=== PATIENT | female | born 1980 | race Two or more races ===

== ENCOUNTER 2016-10-17 17:11 | Emergency (ER) | payer SELFPAY ==
[~2016-10-17] VITALS: Ht 162.6 cm; Wt 106.1 kg
[2016-10-17] MEDS ORDERED: cloNIDine HCL 0.1 MG TABLET PO ONE (19:00)
[2016-10-17] MEDS ORDERED: ACETAMINOPHEN 500 MG TABLET PO ONE (19:00)
[2016-10-17] MEDS ORDERED: IBUPROFEN 800 MG TABLET. PO ONE (19:00)
[2016-10-17] MEDS ORDERED: NORMAL SALINE IV SCH (19:00)
[2016-10-17 19:13] LABS: BASO # 0.1 x10^3/uL (0.0-0.2); BASO % 1 % (0-3); EOS % 2 % (0-3); HEMATOCRIT 39.7 % (36.0-47.0); HEMOGLOBIN 13.6 g/dL (12.0-15.5); LYMPH # 1.5 x10^3/uL (1.0-4.8); LYMPH % 13 % (24-48); MEAN CORPUSCULAR HEMOGLOBIN 30 pg (25-35); MEAN CORPUSCULAR HGB CONC 34 g/dL (31-37); MEAN CORPUSCULAR VOLUME 87 fL (79-100); MONO % 9 % (0-9); NEUT % 76 % (31-73); PLATELET COUNT 286 x10^3/uL (140-400); RED BLOOD COUNT 4.56 x10^6/uL (3.50-5.40); RED CELL DISTRIBUTION WIDTH 13.6 % (11.5-14.5)
[2016-10-17 19:27] LABS: BILIRUBIN,URINE NEGATIVE (NEG); GLUCOSE,URINE NEGATIVE (NEG); NITRITE,URINE NEGATIVE (NEG); PROTEIN,URINE NEGATIVE (NEG-TRACE); UROBILINOGEN,URINE 0.2 mg/dL (0.2 mg/dL)
[2016-10-17 19:34] LABS: BACTERIA,URINE 0 /HPF (0-FEW); SQUAMOUS EPITHELIAL CELL,UR MOD /LPF
[2016-10-17 20:14] LABS: CALCIUM 8.7 mg/dL (8.5-10.1); CREATININE 0.7 mg/dL (0.6-1.0); GFR 93.6; POTASSIUM 3.7 mmol/L (3.5-5.1)
[2016-10-17 20:20] LABS: ALBUMIN 3.9 g/dL (3.4-5.0); TOTAL BILIRUBIN 0.5 mg/dL (0.2-1.0); TOTAL PROTEIN 7.9 g/dL (6.4-8.2)
[2016-10-17 21:06] VITALS: BP 133/79
[2016-10-17] MEDS ORDERED: PROAIR RESPICL90 MCG IH (21:19)
[2016-10-17] MEDS ORDERED: BENZ100C PO (21:19)
[2016-10-17] MEDS ORDERED: PRED50TA PO (21:19)
[2016-10-17] MEDS ORDERED: AMOX875T PO (21:19)
--- NOTE | 2016-10-17 21:19 | PHYS DOC ---
Past Medical History Past Medical History: Hypertension Past Surgical History: No Surgical History Alcohol Use: None Drug Use: None Adult General Chief Complaint Chief Complaint: FEVER HPI HPI Patient is a 36 year old female with hx of HTN, who presents intermittent headaches, for one month, fevers, sore throat, cough and bilateral ear pain for one month. Patient denies this being the worst headache in her life. Denies any neck pain. Patient denies this being the worst headache in her life. Denies any nausea or vomiting. Denies any photosensitivity. Review of Systems Review of Systems Constitutional: Subjective fevers Eyes: Denies change in visual acuity, redness, or eye pain [] HENT: Bilateral ear pain and sore throat [] Respiratory: Denies cough or shortness of breath [] Cardiovascular: No additional information not addressed in HPI [] GI: Denies abdominal pain, nausea, vomiting, bloody stools or diarrhea [] : Denies dysuria or hematuria [] Musculoskeletal: Denies back pain or joint pain [] Integument: Denies rash or skin lesions [] Neurologic: headache Endocrine: Denies polyuria or polydipsia [] Current Medications Current Medications Current Medications Medications (Trade) Dose Ordered Sig/Silke Start Time Stop Time Status Last Admin Dose Admin Acetaminophen (Tylenol) 1,000 mg 1X ONCE 10/17/16 19:00 10/17/16 19:01 DC 10/17/16 19:05 1,000 MG Clonidine HCl (Catapres) 0.2 mg 1X ONCE 10/17/16 19:00 10/17/16 19:01 DC 10/17/16 19:06 0.2 MG Dobutamine HCl/ Dextrose 250 ml @ 0 mls/hr CONT PRN 10/17/16 18:45 10/17/16 21:35 DC Ibuprofen (Motrin) 800 mg 1X ONCE 10/17/16 19:00 10/17/16 19:01 DC 10/17/16 19:05 800 MG Norepinephrine Bitartrate 250 ml @ 0 mls/hr CONT PRN 10/17/16 18:45 10/17/16 21:35 DC Sodium Chloride 500 ml @ 1,000 mls/hr PRN Q30MIN PRN 10/17/16 18:45 10/17/16 21:35 DC Allergies Allergies Allergies Coded Allergies Type Severity Reaction Last Updated Verified No Known Drug Allergies 10/17/16 No Physical Exam Physical Exam Constitutional: Well developed, well nourished, no acute distress, non-toxic appearance. [] HENT: Normocephalic, atraumatic, bilateral external ears normal, oropharynx moist, no oral exudates, nose normal. [] Bilateral TM are mildly injected. +2 tonsils with mild erythema +2 anterior cervical adenopathy Eyes: PERRLA, EOMI, conjunctiva normal, no discharge. [] Neck: Normal range of motion, no tenderness, supple, no stridor. [] Cardiovascular:Heart rate regular rhythm, no murmur [] Lungs & Thorax: Bilateral breath sounds clear to auscultation [] Abdomen: Bowel sounds normal, soft, no tenderness, no masses, no pulsatile masses. [] Skin: Warm, dry, no erythema, no rash. [] Back: No tenderness, no CVA tenderness. [] Extremities: No tenderness, no cyanosis, no clubbing, ROM intact, no edema. [] Neurologic: Alert and oriented X 3, normal motor function, normal sensory function, no focal deficits noted. Cranial nerves II through XII intact Psychologic: Affect normal, judgement normal, mood normal. [] Current Patient Data Vital Signs Vital Signs Date Time Temp Pulse Resp B/P (MAP) Pulse Ox O2 Delivery O2 Flow Rate FiO2 10/17/16 21:06 88 20 133/79 (97) 95 Room Air 10/17/16 20:07 99.3 99.3 Lab Values Laboratory Tests Test 10/17/16 18:26 10/17/16 18:55 10/17/16 19:15 POC Urine HCG, Qualitative Hcg negative (Negative) White Blood Count 12.0 x10^3/uL (4.0-11.0) H Red Blood Count 4.56 x10^6/uL (3.50-5.40) Hemoglobin 13.6 g/dL (12.0-15.5) Hematocrit 39.7 % (36.0-47.0) Mean Corpuscular Volume 87 fL (79-100) Mean Corpuscular Hemoglobin 30 pg (25-35) Mean Corpuscular Hemoglobin Concent 34 g/dL (31-37) Red Cell Distribution Width 13.6 % (11.5-14.5) Platelet Count 286 x10^3/uL (140-400) Neutrophils (%) (Auto) 76 % (31-73) H Lymphocytes (%) (Auto) 13 % (24-48) L Monocytes (%) (Auto) 9 % (0-9) Eosinophils (%) (Auto) 2 % (0-3) Basophils (%) (Auto) 1 % (0-3) Neutrophils # (Auto) 9.1 x10^3uL (1.8-7.7) H Lymphocytes # (Auto) 1.5 x10^3/uL (1.0-4.8) Monocytes # (Auto) 1.1 x10^3/uL (0.0-1.1) Eosinophils # (Auto) 0.3 x10^3/uL (0.0-0.7) Basophils # (Auto) 0.1 x10^3/uL (0.0-0.2) Sodium Level 139 mmol/L (136-145) Potassium Level 3.7 mmol/L (3.5-5.1) Chloride Level 102 mmol/L (98-107) Carbon Dioxide Level 27 mmol/L (21-32) Anion Gap 10 (6-14) Blood Urea Nitrogen 9 mg/dL (7-20) Creatinine 0.7 mg/dL (0.6-1.0) Estimated GFR (Cockcroft-Gault) 93.6 BUN/Creatinine Ratio 13 (6-20) Glucose Level 113 mg/dL (70-99) H Lactic Acid Level 1.5 mmol/L (0.4-2.0) Calcium Level 8.7 mg/dL (8.5-10.1) Total Bilirubin 0.5 mg/dL (0.2-1.0) Aspartate Amino Transferase (AST) 49 U/L (15-37) H Alanine Aminotransferase (ALT) 63 U/L (14-59) H Alkaline Phosphatase 105 U/L (46-116) Total Protein 7.9 g/dL (6.4-8.2) Albumin 3.9 g/dL (3.4-5.0) Albumin/Globulin Ratio 1.0 (1.0-1.7) Procalcitonin < 0.10 ng/mL (0.00-0.10) Urine Collection Type Unknown Urine Color Yellow Urine Clarity Clear Urine pH 8.0 Urine Specific [place] 1.020 Urine Protein Negative mg/dL (NEG-TRACE) Urine Glucose (UA) Negative mg/dL (NEG) Urine Ketones (Stick) Negative mg/dL (NEG) Urine Blood Negative (NEG) Urine Nitrite Negative (NEG) Urine Bilirubin Negative (NEG) Urine Urobilinogen Dipstick 0.2 mg/dL (0.2 mg/dL) Urine Leukocyte Esterase Negative (NEG) Urine RBC 3-5 /HPF (0-2) Urine WBC 1-4 /HPF (0-4) Urine Squamous Epithelial Cells Mod /LPF Urine Bacteria 0 /HPF (0-FEW) Urine Mucus Mod /LPF Laboratory Tests 10/17/16 18:55 Laboratory Tests 10/17/16 18:55 EKG EKG [] Radiology/Procedures Radiology/Procedures [] Course & Med Decision Making Course & Med Decision Making Pertinent Labs and Imaging studies reviewed. (See chart for details) This is a 36-year-old female patient who presents to the ED with multiple complaints including generalized headache, fevers, coughing, ear pain and sore throat for 1 month. She has history of hypertension and has not taken her blood pressure medicines weeks. Blood pressure is 197/106, heart rate 118, temperature 100.0, respiration 24, O2 sats 98%. Physical exam patient has tonsillitis, otitis media and bronchitis. Chest x-ray interpreted by Dr. Muhammad is negative for any acute findings. CBC with a WBC of 12.0. CMP with a slightly elevated AST and ALT 49 and 63 respectively. Patient was given IV fluids in the ED. She was given Tylenol. She was also given clonidine for her blood pressure. On evaluation prior to discharge patient states she is feeling better. She was discharged with albuterol inhaler, prednisone, amoxicillin, Tessalon Perles, and instructed to follow-up with her own PCP next week especially for her blood pressure. Tylenol or Motrin recommended for pain or fever. Dragon Disclaimer Dragon Disclaimer This electronic medical record was generated, in whole or in part, using a voice recognition dictation system. Departure Departure Impression: Primary Impression: Acute tonsillitis Additional Impressions: Fever Otitis media Accelerated hypertension Disposition: 01 HOME, SELF-CARE Condition: STABLE Referrals: NO PCP (PCP) FOLLOW UP WITH YOUR DOCTOR IN ONE WEEK Patient Instructions: Acute Bronchitis, Fever, Adult, Otitis Media, Adult Additional Instructions: You were seen for fever, otitis media and bronchitis. Please use the medications provided as ordered. Scripts Benzonatate (TESSALON PERLE) 100 Mg Capsule 1 CAP PO TID, #30 CAP Prov: HERO SRIVASTAVA APRN 10/17/16 Albuterol Sulfate (Proair Respiclick) 90 Mcg Aer.pow.ba 1 PUFF IH PRN Q6HRS Y for SHORTNESS OF BREATH, #1 INHALER Prov: HERO SRIVASTAVA APRN 10/17/16 Prednisone (PREDNISONE) 50 Mg Tablet 1 TAB PO DAILY, #5 TAB Prov: HERO SRIVASTAVA APRN 10/17/16 Amoxicillin (AMOXICILLIN) 875 Mg Tablet 1 TAB PO BID, #20 TAB Prov: HERO SRIVASTAVA APRN 10/17/16 Problem Qualifiers Primary Impression: Acute tonsillitis Pharyngitis/tonsillitis etiology: unspecified etiology Qualified Codes: J03.90 - Acute tonsillitis, unspecified Additional Impressions: Fever Fever type: unspecified Qualified Codes: R50.9 - Fever, unspecified Otitis media Otitis media type: other nonsuppurative Laterality: bilateral Chronicity: acute Recurrence: not specified as recurrent Qualified Codes: H65.193 - Other acute nonsuppurative otitis media, bilateral HERO SRIVASTAVA APRN Oct 17, 2016 21:19
[2016-10-17] MEDS: IV NORMAL SALINE 500ML BAG 500 ML IV PRN ×2 (21:33→21:34)
[2016-10-17] MEDS: NOREPINEPHRIN PREMIX 250 ML IV PRN ×2 (21:33→21:34)
--- NOTE | 2016-10-18 08:21 | RAD ---
Indication cough for several days. Upper chest pressure. Cough. PA and lateral views of the chest were obtained. No prior imaging is available. The heart and pulmonary vessels appear normal. The lungs are clear. There is no pleural fluid or pneumothorax. The bony structures appear unremarkable. IMPRESSION: No acute or focal process seen in the chest
== END 2016-10-17 21:35 | disposition home or self-care (01) ==
LOC: ER 17:11
DX: J03.90 Acute tonsillitis, unspecified (principal); H66.93 Otitis media, unspecified, bilateral; I10 Essential (primary) hypertension; R51 Headache
CPT/HCPCS: 36415; 71020; 80053; 81001; 81025; 83605; 84145; 85027; 87040; 96360; 96361; 99285; J0390; J7030

== ENCOUNTER 2016-10-25 11:47 | Emergency (ER) | payer SELFPAY ==
[~2016-10-25 11:47] MED LIST: AMOX875T PO; BENZ100C PO; PRED50TA PO; PROAIR RESPICL90 MCG IH
--- NOTE | 2016-10-25 12:18 | EKG ---
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 RI6.01 Unconfirmed report No previous ECG available for comparison Electronically Signed On 10-28-2016 10:43:27 CDT by Anthony Danielle
[2016-10-25] MEDS ORDERED: AZIT250T6 PO (12:38)
--- NOTE | 2016-10-25 12:38 | PHYS DOC ---
Past Medical History Past Medical History: Hypertension Past Surgical History: No Surgical History Alcohol Use: None Drug Use: None Adult General Chief Complaint Chief Complaint: COUGH HPI HPI 36-year-old female presenting to the emergency department today with cough and chest pain. She describes the cough is nonproductive. The pain is worse with coughing it is sharp intermittent nonradiating and mild. Without alleviating factors. She was seen previously and diagnosed with bronchitis. She was given steroids and breathing treatment along with amoxicillin to go home with. She reports her symptoms have not improved much. The patient denies unilateral leg swelling hemoptysis family or personal history of blood clotting disorders. She denies recent immobilization or surgery. Patient's chest pain is been present for more than 2 days. She has a history of hypertension. She denies hyperlipidemia diabetes. She denies ever smoking. Review of systems is negative for fevers chills abdominal pain nausea vomiting diaphoresis. All other review of systems is negative unless otherwise noted in history of present illness. Pertinent physical exam findings: The patient has minimal wheezing in the left and right lungs. Otherwise heart has mildly tachy rate (105 when I was in the room) and rhythm. Otherwise soft nontender abdomen. Well-appearing individual. ED course: 36-year-old female presenting to the emergency department today with cough and chest pain. EKG and chest x-ray were obtained. Blood work obtained. The patient's triage vital signs were recorded when the patient was coughing and do not represent the patient's resting vital signs. During my examination the patient was breathing 18 times per minute. The pulse was approximately 105. Blood pressure was 160/85. Heart score 1. Potassium mildly low. Oral potassium prescription given upon discharge to follow up with PCP for potassium recheck in 2 days. The patient was then discharged home in stable condition to follow up with their primary care physician over the next 2 days. They were to return if their symptoms worsened or if they were concerned for any reason. Face-to- face discharge instructions and return precautions were given. Patient's questions were answered. Review of Systems Review of Systems SEE ABOVE. Allergies Allergies Allergies Coded Allergies Type Severity Reaction Last Updated Verified No Known Drug Allergies 10/17/16 No Physical Exam Physical Exam Constitutional: Well developed, well nourished, no acute distress, non-toxic appearance. [] HENT: Normocephalic, atraumatic, bilateral external ears normal, oropharynx moist, no oral exudates, nose normal. [] Eyes: PERRLA, EOMI, conjunctiva normal, no discharge. [] Neck: Normal range of motion, no tenderness, supple, no stridor. [] Cardiovascular: see above Lungs & Thorax: see above Abdomen: Bowel sounds normal, soft, no tenderness, no masses, no pulsatile masses. [] Skin: Warm, dry, no erythema, no rash. [] Back: No tenderness, no CVA tenderness. [] Extremities: No tenderness, no cyanosis, no clubbing, ROM intact, no edema. [] Neurologic: Alert and oriented X 3, normal motor function, normal sensory function, no focal deficits noted. [] Psychologic: Affect normal, judgement normal, mood normal. [] Current Patient Data Vital Signs Vital Signs Date Time Temp Pulse Resp B/P (MAP) Pulse Ox O2 Delivery O2 Flow Rate FiO2 10/25/16 12:01 98.3 125 24 165/74 (104) 99 Room Air 98.3 Lab Values Laboratory Tests Test 10/25/16 12:45 White Blood Count 12.9 x10^3/uL (4.0-11.0) H Red Blood Count 4.44 x10^6/uL (3.50-5.40) Hemoglobin 13.1 g/dL (12.0-15.5) Hematocrit 39.2 % (36.0-47.0) Mean Corpuscular Volume 88 fL (79-100) Mean Corpuscular Hemoglobin 30 pg (25-35) Mean Corpuscular Hemoglobin Concent 33 g/dL (31-37) Red Cell Distribution Width 13.4 % (11.5-14.5) Platelet Count 300 x10^3/uL (140-400) Neutrophils (%) (Auto) 65 % (31-73) Lymphocytes (%) (Auto) 24 % (24-48) Monocytes (%) (Auto) 8 % (0-9) Eosinophils (%) (Auto) 3 % (0-3) Basophils (%) (Auto) 1 % (0-3) Neutrophils # (Auto) 8.3 x10^3uL (1.8-7.7) H Lymphocytes # (Auto) 3.1 x10^3/uL (1.0-4.8) Monocytes # (Auto) 1.0 x10^3/uL (0.0-1.1) Eosinophils # (Auto) 0.4 x10^3/uL (0.0-0.7) Basophils # (Auto) 0.1 x10^3/uL (0.0-0.2) Sodium Level 141 mmol/L (136-145) Potassium Level 3.2 mmol/L (3.5-5.1) L Chloride Level 104 mmol/L (98-107) Carbon Dioxide Level 26 mmol/L (21-32) Anion Gap 11 (6-14) Blood Urea Nitrogen 10 mg/dL (7-20) Creatinine 0.7 mg/dL (0.6-1.0) Estimated GFR (Cockcroft-Gault) 93.6 Glucose Level 170 mg/dL (70-99) H Calcium Level 8.8 mg/dL (8.5-10.1) Troponin I Quantitative < 0.017 ng/mL (0.000-0.055) Laboratory Tests 10/25/16 12:45 Laboratory Tests 10/25/16 12:45 EKG EKG EKG shows sinus tachycardia. ST segments congruent. Not suggestive of ACS. [] Radiology/Procedures Radiology/Procedures [] Course & Med Decision Making Course & Med Decision Making Pertinent Labs and Imaging studies reviewed. (See chart for details) [] Dragon Disclaimer Dragon Disclaimer This electronic medical record was generated, in whole or in part, using a voice recognition dictation system. Departure Departure Impression: Primary Impression: Cough Additional Impression: Sinus tachycardia Disposition: HOME, SELF-CARE Condition: STABLE Referrals: NO PCP (PCP) TOMY HARDIN MD Patient Instructions: Cough, Adult Additional Instructions: Thank you for allowing us to participate in your care today. Followup with your primary care physician in 3 days if your symptoms do not improve. If you do not have a primary care provider you can ask for a list of our primary care providers. Return to the emergency department you have any new or concerning findings. This should be evaluated by the primary care physician and any necessary consulting services for continued management within a few days after discharge. Return to emergency room if you have any new or concerning symptoms including but not limited to fever, chills, nausea, vomiting, intractable pain, any new rashes, chest pain, shortness of air, uncontrolled bleeding, difficulty breathing, and/or vision loss. Scripts Potassium Chloride (POTASSIUM CHLORIDE) 10 Meq Capsule.er 10 MEQ PO DAILY for 5 Days, #5 TAB.SR Prov: BOLIVAR BOYD MD 10/25/16 Azithromycin (AZITHROMYCIN TABLET) 250 Mg Tablet 1 PKG PO UD, #6 TAB Prov: BOLIVAR BOYD MD 10/25/16 Problem Qualifiers BOLIVAR BOYD MD Oct 25, 2016 12:38
[2016-10-25 12:55] LABS: BASO # 0.1 x10^3/uL (0.0-0.2); BASO % 1 % (0-3); EOS % 3 % (0-3); HEMATOCRIT 39.2 % (36.0-47.0); HEMOGLOBIN 13.1 g/dL (12.0-15.5); LYMPH # 3.1 x10^3/uL (1.0-4.8); LYMPH % 24 % (24-48); MEAN CORPUSCULAR HEMOGLOBIN 30 pg (25-35); MEAN CORPUSCULAR HGB CONC 33 g/dL (31-37); MEAN CORPUSCULAR VOLUME 88 fL (79-100); MONO % 8 % (0-9); NEUT % 65 % (31-73); PLATELET COUNT 300 x10^3/uL (140-400); RED BLOOD COUNT 4.44 x10^6/uL (3.50-5.40); RED CELL DISTRIBUTION WIDTH 13.4 % (11.5-14.5); WHITE BLOOD COUNT 12.9 x10^3/uL (4.0-11.0)
[2016-10-25 13:06] LABS: CALCIUM 8.8 mg/dL (8.5-10.1); CREATININE 0.7 mg/dL (0.6-1.0); GFR 93.6; POTASSIUM 3.2 mmol/L (3.5-5.1)
--- NOTE | 2016-10-25 13:06 | RAD ---
PA and lateral chest radiographs 10/24/2016 Clinical history: Chest pain, for some time with arm swelling. PA and lateral digital radiographs of the chest were obtained. Comparison study is dated 10/17/2016. The cardiac silhouette is normal in size. The thoracic aorta is mildly tortuous. No acute pulmonary infiltrate is seen. No pleural effusion or pneumothorax is noted. The osseous structures are unchanged. Impression: No acute abnormality is seen.
[2016-10-25] MEDS ORDERED: POTASSIUM CHLO10 MEQ PO (14:21)
[2016-10-25 14:25] VITALS: BP 171/79
[2016-10-25] MEDS ORDERED: IPRATRPIUM/ALBUTEROL 0.5/2.5MG 3 ML NEBU. NEB ONE (14:30)
[2016-10-25] MEDS ORDERED: POTASSIUM CHLORIDE 10 MEQ TABLET.ER. PO ONE (14:30)
== END 2016-10-25 15:23 | disposition home or self-care (01) ==
LOC: ER 11:47
DX: R00.0 Tachycardia, unspecified (principal); R05 Cough; I10 Essential (primary) hypertension
CPT/HCPCS: 36415; 71020; 80048; 81025; 84484; 85027; 93005; 94250; 94640; 99285; J7620

== ENCOUNTER 2019-07-03 10:25 | Emergency (ER) | payer SELFPAY ==
[~2019-07-03] VITALS: Ht 162.6 cm; Wt 81.0 kg
[~2019-07-03 10:25] MED LIST changes: +AZIT250T6 PO; +POTA10TA12 PO
[2019-07-03] MEDS ORDERED: ONDANSETRON ODT 4 MG TAB.RAPDIS. PO ONE (11:00)
[2019-07-03] MEDS ORDERED: IBUPROFEN 400 MG TABLET. PO ONE (11:00)
[2019-07-03] MEDS ORDERED: ACETAMINOPHEN 500 MG TABLET PO ONE (11:00)
[2019-07-03 11:34] LABS: INFLUENZA A PATIENT POSITIVE (NEGATIVE); INFLUENZA B PATIENT NEGATIVE (NEGATIVE)
[2019-07-03 11:36] VITALS: BP 174/99
--- NOTE | 2019-07-03 11:42 | RAD ---
EXAM: Chest, single view. HISTORY: Fever. COMPARISON: 10/25/2016 FINDINGS: A frontal view of the chest obtained. There is no infiltrate, pleural effusion or pneumothorax. The heart is normal in size. IMPRESSION: No acute pulmonary finding. Electronically signed by: Apple Reyes MD (07/03/2019 11:40 AM) [id number]
--- NOTE | 2019-07-03 12:20 | PHYS DOC ---
Past Medical History Past Medical History: Hypertension Past Surgical History: No Surgical History Smoking Status: Never Smoker Alcohol Use: None Drug Use: None Adult General Chief Complaint Chief Complaint: FLU SYMPTOM HPI HPI Patient is a 38 year old female who presents with sore throat, cough, fever, body aches, symptoms began 4 days ago. Patient denies any exposure to anyone from [place] or traveling outside the [facility]. Review of Systems Review of Systems Constitutional: reports fever, body aches. Eyes: Denies change in visual acuity, redness, or eye pain [] HENT: Reports sore throat. Denies nasal congestion Respiratory: Reports cough denies shortness of breath [] Cardiovascular: No additional information not addressed in HPI [] GI: Denies abdominal pain, nausea, vomiting, bloody stools or diarrhea [] : Denies dysuria or hematuria [] Musculoskeletal: Denies back pain or joint pain [] Integument: Denies rash or skin lesions [] Neurologic: Denies headache, focal weakness or sensory changes [] All other systems were reviewed and found to be within normal limits, except as documented in this note. Current Medications Current Medications Current Medications Medications (Trade) Dose Ordered Sig/[facility] Start Time Stop Time Status Last Admin Dose Admin Acetaminophen (Tylenol) 1,000 mg 1X ONCE 07/03/19 11:00 07/03/19 11:01 DC 07/03/19 11:13 1,000 MG Ibuprofen (Motrin) 800 mg 1X ONCE 07/03/19 11:00 07/03/19 11:01 DC 07/03/19 11:13 800 MG Ondansetron HCl (Zofran Odt) 4 mg 1X ONCE 07/03/19 11:00 07/03/19 11:01 DC 07/03/19 11:12 4 MG Allergies Allergies Allergies Coded Allergies Type Severity Reaction Last Updated Verified No Known Drug Allergies 10/17/16 No Physical Exam Physical Exam Constitutional: Well developed, well nourished, no acute distress, non-toxic appearance. [] HENT: Normocephalic, atraumatic, bilateral external ears normal, oropharynx moist, no oral exudates, nose normal. [] Eyes: PERRLA, EOMI, conjunctiva normal, no discharge. [] Neck: Normal range of motion, no tenderness, supple, no stridor. [] Cardiovascular:Heart rate regular rhythm, no murmur [] Lungs & Thorax: Bilateral breath sounds clear to auscultation [] Abdomen: Bowel sounds normal, soft, no tenderness, no masses, no pulsatile masses. [] Skin: Warm, dry, no erythema, no rash. [] Back: No tenderness, no CVA tenderness. [] Extremities: No tenderness, no cyanosis, no clubbing, ROM intact, no edema. [] Neurologic: Alert and oriented X 3, normal motor function, normal sensory function, no focal deficits noted. [] Psychologic: Affect normal, judgement normal, mood normal. [] Current Patient Data Vital Signs Vital Signs Date Time Temp Pulse Resp B/P (MAP) Pulse Ox O2 Delivery O2 Flow Rate FiO2 07/03/19 11:36 108 16 174/99 (124) 95 Room Air 07/03/19 10:25 102.8 102.8 Lab Values Laboratory Tests Test 07/03/19 10:38 07/03/19 10:45 POC Urine HCG, Qualitative Hcg negative (Negative) Influenza Type A Antigen Positive (NEGATIVE) Influenza Type B Antigen Negative (NEGATIVE) EKG EKG [] Radiology/Procedures Radiology/Procedures []PROCEDURE: CHEST AP ONLY EXAM: Chest, single view. HISTORY: Fever. COMPARISON: 10/25/2016 FINDINGS: A frontal view of the chest obtained. There is no infiltrate, pleural effusion or pneumothorax. The heart is normal in size. IMPRESSION: No acute pulmonary finding. Electronically signed by: Apple Reyes MD (07/03/2019 11:40 AM) [id number] DICTATED and SIGNED BY: APPLE REYES MD DATE: 07/03/19 1140 Course & Med Decision Making Course & Med Decision Making Pertinent Labs and Imaging studies reviewed. (See chart for details) This is a 38-year-old female patient presenting to the ED today with flulike symptoms including body aches, fevers, cough, sore throat, symptoms began 4 days ago. Positive for influenza A. Patient was discharged with prednisone, given Zofran for nausea vomiting, supportive care measures also recommended including resting, Tylenol/Motrin and pushing fluids. Dragon Disclaimer Dragon Disclaimer This electronic medical record was generated, in whole or in part, using a voice recognition dictation system. Departure Departure Impression: Primary Impression: Influenza A Additional Impressions: Fever Cough Disposition: HOME, SELF-CARE Condition: STABLE Referrals: NO PCP (PCP) follow up with your doctor in 1-2 weeks Patient Instructions: Cough, Adult, [id number], Fever, Adult, Influenza A (H1N1) Additional Instructions: You tested positive for influenza A, this is a viral illness, it run its own course. Please rest, push fluids, maintain good hand hygiene. Take the prescribed medications as ordered. Follow-up with your doctor in 1-2 weeks. Ensure you taking Tylenol/Motrin for pain or fever Scripts Ondansetron (ONDANSETRON ODT) 4 Mg Tab.rapdis 1 TAB PO PRN Q6-8HRS, #16 TAB Prov: HERO SRIVASTAVA APRN 07/03/19 Benzonatate (TESSALON PERLE) 100 Mg Capsule 1 CAP PO TID, #30 CAP Prov: HERO SRIVASTAVA APRN 07/03/19 Prednisone (PREDNISONE) 50 Mg Tablet 1 TAB PO DAILY, #5 TAB Prov: HERO SRIVASTAVA APRN 07/03/19 Problem Qualifiers Additional Impressions: Fever Fever type: unspecified Qualified Codes: R50.9 - Fever, unspecified HERO SRIVASTAVA APRN Jul 03, 2019 12:20
[2019-07-03] MEDS ORDERED: PRED50TA PO (12:27)
[2019-07-03] MEDS ORDERED: BENZ100C PO (12:27)
[2019-07-03] MEDS ORDERED: ONDA4TAB12 PO (12:29)
[2019-07-03] MEDS ORDERED: IV NORMAL SALINE 1000ML BAG 1,000 ML IV ONE (12:30)
== END 2019-07-03 12:45 | disposition home or self-care (01) ==
LOC: ER 10:25
DX: J10.1 Influenza due to other identified influenza virus with other respiratory manifestations (principal); R05 Cough; R52 Pain, unspecified; I10 Essential (primary) hypertension
CPT/HCPCS: 71045; 81025; 87070; 87804; 87880; 99284; J7030; Q0162

== ENCOUNTER 2019-07-12 21:47 | Emergency (ER) | payer SELFPAY ==
[~2019-07-12] VITALS: Ht 162.6 cm; Wt 86.4 kg
[~2019-07-12 21:47] MED LIST changes: +ONDA4TAB12 PO
--- NOTE | 2019-07-13 00:16 | RAD ---
CHEST PA LATERAL History: Cough Comparison: July 03, 2019 Findings: No consolidation or pleural effusion. Normal heart size. No pneumothorax. Impression: 1. No acute cardiopulmonary process. Electronically signed by: Shahram Guadalupe DO (07/13/2019 12:13 AM) [id number]
[2019-07-13] MEDS ORDERED: IPRATRPIUM/ALBUTEROL 0.5/2.5MG 3 ML NEBU. NEB ONE (00:30)
[2019-07-13] MEDS ORDERED: IV NORMAL SALINE 1000ML BAG 1,000 ML IV SCH (00:30)
[2019-07-13] MEDS ORDERED: KETOROLAC 30 MG/ML VIAL. ONE (00:39)
[2019-07-13 00:44] LABS: BASO # 0.1 x10^3/uL (0.0-0.2); BASO % 1 % (0-3); EOS # 0.2 x10^3/uL (0.0-0.7); EOS % 2 % (0-3); HEMATOCRIT 38.3 % (36.0-47.0); LYMPH # 3.1 x10^3/uL (1.0-4.8); LYMPH % 32 % (24-48); MEAN CORPUSCULAR HEMOGLOBIN 29 pg (25-35); MEAN CORPUSCULAR HGB CONC 34 g/dL (31-37); MEAN CORPUSCULAR VOLUME 85 fL (79-100); MONO # 0.7 x10^3/uL (0.0-1.1); MONO % 7 % (0-9); NEUT # 5.6 x10^3/uL (1.8-7.7); NEUT % 58 % (31-73); PLATELET COUNT 382 x10^3/uL (140-400); RED BLOOD COUNT 4.49 x10^6/uL (3.50-5.40); RED CELL DISTRIBUTION WIDTH 14.2 % (11.5-14.5); WHITE BLOOD COUNT 9.6 x10^3/uL (4.0-11.0)
[2019-07-13 00:45] LABS: BILIRUBIN,URINE NEGATIVE (NEG); CLARITY,URINE CLEAR; COLOR,URINE YELLOW; NITRITE,URINE NEGATIVE (NEG); PROTEIN,URINE NEGATIVE (NEG-TRACE)
[2019-07-13 00:52] LABS: BACTERIA,URINE 0 /HPF (0-FEW); RBC,URINE RARE /HPF (0-2); SQUAMOUS EPITHELIAL CELL,UR FEW /LPF; WBC,URINE 0 /HPF (0-4)
[2019-07-13 00:56] LABS: CALCIUM 8.7 mg/dL (8.5-10.1); CREATININE 0.5 mg/dL (0.6-1.0); GFR 136.6; POTASSIUM 5.1 mmol/L (3.5-5.1)
[2019-07-13] MEDS ORDERED: KETOROLAC 30 MG/ML VIAL. IVP ONE (01:00)
[2019-07-13 01:02] LABS: ALBUMIN 3.3 g/dL (3.4-5.0); ALBUMIN/GLOBULIN RATIO 0.9 (1.0-1.7); TOTAL BILIRUBIN 0.4 mg/dL (0.2-1.0); TOTAL PROTEIN 7.1 g/dL (6.4-8.2)
[2019-07-13 01:04] LABS: INFLUENZA A PATIENT NEGATIVE (NEGATIVE); INFLUENZA B PATIENT NEGATIVE (NEGATIVE)
--- NOTE | 2019-07-13 01:08 | PHYS DOC ---
Past Medical History Past Medical History: Hypertension Past Surgical History: Tubal ligation Smoking Status: Never Smoker Alcohol Use: None Drug Use: None Adult General Chief Complaint Chief Complaint: COUGH HPI HPI Patient is a 38 year old female who presents with report of cough, chest congestion with subjective fever and chills. Patient had been seen here on 03 July and was diagnosed with influenza. Patient states that she was not given any medication at that time and she states that she feels like she is getting worse. She states that she is able to bring up some sputum with the coughing periodically.[] Review of Systems Review of Systems Constitutional: Positive subjective fever and chills [] Eyes: Denies change in visual acuity, redness, or eye pain [] HENT: Positive nasal congestion and sore throat [] Respiratory: Positive cough without shortness of breath [] Cardiovascular: No additional information not addressed in HPI [] GI: Denies abdominal pain, nausea, vomiting or diarrhea [] Integument: Denies rash or skin lesions [] Current Medications Current Medications Current Medications Medications (Trade) Dose Ordered Sig/Silke Start Time Stop Time Status Last Admin Dose Admin Albuterol/ Ipratropium (Duoneb) 3 ml 1X ONCE 07/13/19 00:30 07/13/19 00:31 DC 07/13/19 00:10 3 ML Ketorolac Tromethamine (Toradol 30mg Vial) 30 mg 1X ONCE 07/13/19 01:00 07/13/19 01:01 DC 07/13/19 00:48 30 MG Sodium Chloride 1,000 ml @ 1,000 mls/hr Q1H 07/13/19 00:30 07/13/19 01:29 07/13/19 00:38 1,000 MLS/HR Allergies Allergies Allergies Coded Allergies Type Severity Reaction Last Updated Verified No Known Drug Allergies 10/17/16 No Physical Exam Physical Exam Constitutional: Well developed, well nourished, no acute distress, non-toxic appearance. [] HENT: Normocephalic, atraumatic, bilateral external ears normal, oropharynx moist, no oral exudates, nose normal. [] Eyes: PERRLA, EOMI, conjunctiva normal, no discharge. [] Neck: Normal range of motion, no tenderness, supple. [] Cardiovascular: Regular rate and rhythm[] Lungs & Thorax: Bilateral breath sounds clear to auscultation [] Skin: Warm, dry, no erythema, no rash. [] Extremities: No tenderness, no cyanosis, no clubbing, ROM intact, no edema. [] Current Patient Data Vital Signs Vital Signs Date Time Temp Pulse Resp B/P (MAP) Pulse Ox O2 Delivery O2 Flow Rate FiO2 07/13/19 00:10 98 Room Air 07/12/19 22:30 98.0 87 22 151/101 (118) 98.0 Lab Values Laboratory Tests Test 07/13/19 00:20 White Blood Count 9.6 x10^3/uL (4.0-11.0) Red Blood Count 4.49 x10^6/uL (3.50-5.40) Hemoglobin 13.0 g/dL (12.0-15.5) Hematocrit 38.3 % (36.0-47.0) Mean Corpuscular Volume 85 fL (79-100) Mean Corpuscular Hemoglobin 29 pg (25-35) Mean Corpuscular Hemoglobin Concent 34 g/dL (31-37) Red Cell Distribution Width 14.2 % (11.5-14.5) Platelet Count 382 x10^3/uL (140-400) Neutrophils (%) (Auto) 58 % (31-73) Lymphocytes (%) (Auto) 32 % (24-48) Monocytes (%) (Auto) 7 % (0-9) Eosinophils (%) (Auto) 2 % (0-3) Basophils (%) (Auto) 1 % (0-3) Neutrophils # (Auto) 5.6 x10^3/uL (1.8-7.7) Lymphocytes # (Auto) 3.1 x10^3/uL (1.0-4.8) Monocytes # (Auto) 0.7 x10^3/uL (0.0-1.1) Eosinophils # (Auto) 0.2 x10^3/uL (0.0-0.7) Basophils # (Auto) 0.1 x10^3/uL (0.0-0.2) Urine Collection Type Unknown Urine Color Yellow Urine Clarity Clear Urine pH 6.0 Urine Specific [place] 1.025 Urine Protein Negative mg/dL (NEG-TRACE) Urine Glucose (UA) Negative mg/dL (NEG) Urine Ketones (Stick) Negative mg/dL (NEG) Urine Blood Negative (NEG) Urine Nitrite Negative (NEG) Urine Bilirubin Negative (NEG) Urine Urobilinogen Dipstick 1.0 mg/dL (0.2 mg/dL) Urine Leukocyte Esterase Negative (NEG) Urine RBC Rare /HPF (0-2) Urine WBC 0 /HPF (0-4) Urine Squamous Epithelial Cells Few /LPF Urine Bacteria 0 /HPF (0-FEW) Urine Mucus Slight /LPF Sodium Level 140 mmol/L (136-145) Potassium Level 5.1 mmol/L (3.5-5.1) Chloride Level 104 mmol/L (98-107) Carbon Dioxide Level 26 mmol/L (21-32) Anion Gap 10 (6-14) Blood Urea Nitrogen 13 mg/dL (7-20) Creatinine 0.5 mg/dL (0.6-1.0) L Estimated GFR (Cockcroft-Gault) 136.6 BUN/Creatinine Ratio 26 (6-20) H Glucose Level 135 mg/dL (70-99) H Calcium Level 8.7 mg/dL (8.5-10.1) Total Bilirubin 0.4 mg/dL (0.2-1.0) Aspartate Amino Transferase (AST) 69 U/L (15-37) H Alanine Aminotransferase (ALT) 56 U/L (14-59) Alkaline Phosphatase 111 U/L (46-116) Troponin I Quantitative < 0.017 ng/mL (0.000-0.055) LI-Sft-Z-Type Natriuretic Peptide 45 pg/mL (0-124) Total Protein 7.1 g/dL (6.4-8.2) Albumin 3.3 g/dL (3.4-5.0) L Albumin/Globulin Ratio 0.9 (1.0-1.7) L Influenza Type A Antigen Negative (NEGATIVE) Influenza Type B Antigen Negative (NEGATIVE) Laboratory Tests 07/13/19 00:20 Laboratory Tests 07/13/19 00:20 EKG EKG [] Radiology/Procedures Radiology/Procedures [] Impressions: PROCEDURE: CHEST PA & LATERAL CHEST PA LATERAL History: Cough Comparison: July 03, 2019 Findings: No consolidation or pleural effusion. Normal heart size. No pneumothorax. Impression: 1. No acute cardiopulmonary process. Electronically signed by: Shahram Guadalupe DO (07/13/2019 12:13 AM) [id number] Course & Med Decision Making Course & Med Decision Making Pertinent Labs and Imaging studies reviewed. (See chart for details) [] Dragon Disclaimer Dragon Disclaimer This electronic medical record was generated, in whole or in part, using a voice recognition dictation system. Departure Departure Impression: Primary Impression: Acute bronchitis Disposition: 01 HOME, SELF-CARE Condition: STABLE Referrals: NO PCP (PCP) Patient Instructions: Acute Bronchitis Scripts Guaifenesin/Codeine Phosphate (Codeine-Guaifen 10-100 mg/5 ml) 120 Ml Liquid 5 ML PO PRN Q6HRS PRN for cough and congestion MDD 20 Milliliter(s) for 6 Days, #120 ML 0 Refills Prov: JANIE MAURO Jr. DO 07/13/19 Azithromycin (ZITHROMAX) 250 Mg Tablet 1 PKG PO UD, #6 TAB Prov: JANIE MAURO Jr. DO 07/13/19 Problem Qualifiers Primary Impression: Acute bronchitis Bronchitis organism: unspecified organism Qualified Codes: J20.9 - Acute bronchitis, unspecified JANIE MAURO Jr. DO Jul 13, 2019 01:08
[2019-07-13] MEDS ORDERED: AZIT250T PO (01:30)
[2019-07-13] MEDS ORDERED: GUAI120L35 PO (01:30)
[2019-07-13 01:38] VITALS: BP 164/80
[2019-07-13] MEDS ORDERED: cefTRIAXone IV Push 1 GM VIAL. IVP ONE (02:00)
== END 2019-07-13 02:10 | disposition home or self-care (01) ==
LOC: ER 21:47
DX: J20.9 Acute bronchitis, unspecified (principal); R05 Cough; R09.89 Other specified symptoms and signs involving the circulatory and respiratory systems; R50.9 Fever, unspecified; I10 Essential (primary) hypertension; Z98.51 Tubal ligation status
CPT/HCPCS: 36415; 71046; 80053; 81001; 83880; 84484; 85025; 87040; 87804; 94640; 96374; 96375; 99285; J0696; J1885; J7030

== ENCOUNTER 2020-03-29 19:11 | Emergency (ER) | payer OTHER ==
[~2020-03-29] VITALS: Ht 162.6 cm; Wt 90.9 kg
[~2020-03-29 19:11] MED LIST changes: +AZIT250T PO; +GUAI120L35 PO
[2020-03-29] MEDS ORDERED: IV NORMAL SALINE 1000ML BAG 1,000 ML IV ONE (20:15)
[2020-03-29 20:32] LABS: BASO # 0.1 x10^3/uL (0.0-0.2); BASO % 1 % (0-3); EOS # 0.2 x10^3/uL (0.0-0.7); EOS % 2 % (0-3); HEMATOCRIT 42.7 % (36.0-47.0); HEMOGLOBIN 14.7 g/dL (12.0-15.5); LYMPH # 2.8 x10^3/uL (1.0-4.8); LYMPH % 30 % (24-48); MEAN CORPUSCULAR HEMOGLOBIN 30 pg (25-35); MEAN CORPUSCULAR HGB CONC 34 g/dL (31-37); MEAN CORPUSCULAR VOLUME 86 fL (79-100); MONO # 0.6 x10^3/uL (0.0-1.1); MONO % 6 % (0-9); NEUT # 5.6 x10^3/uL (1.8-7.7); NEUT % 60 % (31-73); PLATELET COUNT 261 x10^3/uL (140-400); RED BLOOD COUNT 4.96 x10^6/uL (3.50-5.40); RED CELL DISTRIBUTION WIDTH 13.3 % (11.5-14.5); WHITE BLOOD COUNT 9.4 x10^3/uL (4.0-11.0)
--- NOTE | 2020-03-29 20:32 | ED.ADGEN ---
Past Medical History Past Medical History: Diabetes-Type II, Hypertension Past Surgical History: Tubal ligation Smoking Status: Never Smoker Alcohol Use: None Drug Use: None General Adult EDM: Chief Complaint: MULTIPLE COMPLAINTS HPI: HPI: Patient is a 39 year old female who presents to the emergency department with complaints of frequent sneezing, dry cough, and nasal congestion for the last week, she complains of pressure in her sinuses. Patient denies any fever, nausea, vomiting, diarrhea, chest pain, shortness of breath, wheezing, palpitations, abdominal pain, or body aches. She denies any known exposure to COVID-19. She reports that she has had multiple abscesses to her inner right thigh for several days, she had a similar episode 3 months ago and was prescribed antibiotics to get it cleared up. She denies any drainage, or bleeding from the abscess sites. She reports that the sites are very tender to touch and warm. Patient also expresses concerns of possible diabetes. Her daughter has been checking her blood sugar in the morning and they have been in the 300s recently. Patient denies any previous diagnosis of diabetes. She states she has been trying to get in with a new doctor at [facility] because her doctor left. She currently complains of pain in her left thigh that she rates a 10 out of 10 on the pain scale, she denies any alleviating factors, the pain is worse with palpation. Review of Systems: Review of Systems: Complete ROS is negative unless otherwise noted in HPI. Current Medications: Current Medications Medications (Trade) Dose Ordered Sig/Silke Start Time Stop Time Status Last Admin Dose Admin Acetaminophen/ Hydrocodone Bitart (Lortab 5/325) 1 tab 1X ONCE 03/29/20 22:30 03/29/20 22:31 Lidocaine/ Epinephrine (LIDOCAINE 1%-EPI 1:100,000 Multi-Dose) 20 ml 1X ONCE 03/29/20 22:00 03/29/20 22:01 DC 03/29/20 21:37 20 ML Sodium Chloride 1,000 ml @ 1,000 mls/hr 1X ONCE 03/29/20 20:15 03/29/20 21:14 DC 03/29/20 21:03 1,000 MLS/HR Allergies: Allergies: Allergies Coded Allergies Type Severity Reaction Last Updated Verified No Known Drug Allergies 10/17/16 No Physical Exam: PE: See Above Constitutional: Well developed, well nourished, no acute distress, non-toxic appearance, obese. [] HENT: Normocephalic, atraumatic, bilateral external ears normal, nose congested Eyes: PERRLA, EOMI, conjunctiva normal, no discharge. [] Neck: Normal range of motion, no stridor. [] Cardiovascular:Heart rate regular rhythm Lungs & Thorax: Respirations even and unlabored, no retractions, no respiratory distress, speaking full sentences, no wheezing Abdomen: soft, no tenderness Skin: Warm, dry; pustular folliculitis noted to the right groin with 4 areas of fluctuance with surrounding indurated, tender tissue Extremities: No cyanosis, ROM intact, no edema. [] Neurologic: Alert and oriented X 3, no focal deficits noted. [] Psychologic: Affect normal, judgement normal, mood normal. [] Current Patient Data: Labs: Laboratory Tests Test 03/29/20 19:58 White Blood Count 9.4 x10^3/uL (4.0-11.0) Red Blood Count 4.96 x10^6/uL (3.50-5.40) Hemoglobin 14.7 g/dL (12.0-15.5) Hematocrit 42.7 % (36.0-47.0) Mean Corpuscular Volume 86 fL (79-100) Mean Corpuscular Hemoglobin 30 pg (25-35) Mean Corpuscular Hemoglobin Concent 34 g/dL (31-37) Red Cell Distribution Width 13.3 % (11.5-14.5) Platelet Count 261 x10^3/uL (140-400) Neutrophils (%) (Auto) 60 % (31-73) Lymphocytes (%) (Auto) 30 % (24-48) Monocytes (%) (Auto) 6 % (0-9) Eosinophils (%) (Auto) 2 % (0-3) Basophils (%) (Auto) 1 % (0-3) Neutrophils # (Auto) 5.6 x10^3/uL (1.8-7.7) Lymphocytes # (Auto) 2.8 x10^3/uL (1.0-4.8) Monocytes # (Auto) 0.6 x10^3/uL (0.0-1.1) Eosinophils # (Auto) 0.2 x10^3/uL (0.0-0.7) Basophils # (Auto) 0.1 x10^3/uL (0.0-0.2) Urine Collection Type Void Urine Color Yellow Urine Clarity Clear Urine pH 6.0 (<5.0-8.0) Urine Specific [place] >=1.030 (1.000-1.030) Urine Protein Negative mg/dL (NEG-TRACE) Urine Glucose (UA) >=1000 mg/dL (NEG) Urine Ketones (Stick) Trace mg/dL (NEG) Urine Blood Moderate (NEG) Urine Nitrite Negative (NEG) Urine Bilirubin Negative (NEG) Urine Urobilinogen Dipstick 1.0 mg/dL (0.2 mg/dL) Urine Leukocyte Esterase Negative (NEG) Urine RBC 1-2 /HPF (0-2) Urine WBC 0 /HPF (0-4) Urine Squamous Epithelial Cells Few /LPF Urine Bacteria 0 /HPF (0-FEW) Sodium Level 128 mmol/L (136-145) L Potassium Level 3.4 mmol/L (3.5-5.1) L Chloride Level 96 mmol/L (98-107) L Carbon Dioxide Level 28 mmol/L (21-32) Anion Gap 4 (6-14) L Blood Urea Nitrogen 11 mg/dL (7-20) Creatinine 0.8 mg/dL (0.6-1.0) Estimated GFR (Cockcroft-Gault) 79.0 BUN/Creatinine Ratio 14 (6-20) Glucose Level 363 mg/dL (70-99) H Glucose (Fingerstick) 349 mg/dL (70-99) H Calcium Level 9.1 mg/dL (8.5-10.1) Total Bilirubin 0.4 mg/dL (0.2-1.0) Aspartate Amino Transferase (AST) 45 U/L (15-37) H Alanine Aminotransferase (ALT) 63 U/L (14-59) H Alkaline Phosphatase 139 U/L (46-116) H Total Protein 7.7 g/dL (6.4-8.2) Albumin 3.7 g/dL (3.4-5.0) Albumin/Globulin Ratio 0.9 (1.0-1.7) L Laboratory Tests 03/29/20 19:58 Laboratory Tests 03/29/20 19:58 Vital Signs: Vital Signs Date Time Temp Pulse Resp B/P (MAP) Pulse Ox O2 Delivery O2 Flow Rate FiO2 03/29/20 20:53 86 20 142/78 (99) 97 Room Air 03/29/20 19:48 98.0 98.0 EKG: EKG: [] Heart Score: Risk Factors: Risk Factors: DM, Current or recent (<one month) smoker, HTN, HLP, family history of CAD, obesity. Risk Scores: Score 0 - 3: 2.5% MACE over next 6 weeks - Discharge Home Score 4 - 6: 20.3% MACE over next 6 weeks - Admit for Clinical Observation Score 7 - 10: 72.7% MACE over next 6 weeks - Early Invasive Strategies Radiology/Procedures: Radiology/Procedures: Indication: follicular abscesses of right groin Procedure: The patient was positioned appropriately. Local anesthesia was 1% lid ocaine with epinephrine an incision was then made with an 11 blade scalpel over the apex of the lesions and small amount of bloody pus was expressed from each of the 4 sites. The patient tolerated the procedure well. Complications: none.[] Course & Med Decision Making: Course & Med Decision Making Pertinent Labs and Imaging studies reviewed. (See chart for details) 39-year-old female presented to the emergency room with multiple complaints. Low suspicion for COVID-19 as the patient's chest x-ray was normal, and her only symptoms were a dry cough and nasal congestion. Patient denied any decreased sense of taste or smell. CBC was unremarkable; CMP revealed a corrected sodium of 132; potassium of 3.4, chloride of 96, glucose of 363, AST of 45, ALT of 63, alk phos 139 otherwise unremarkable; patient's urinalysis revealed greater than thousand glucose trace ketones 1-2 red blood cells otherwise unremarkable. The patient was given 1 L of normal saline in the emergency department. I&D of the abscesses as documented above. Patient was given 1 hydrocodone for pain. She was also provided with diet instructions for diabetic meal planning. I provided her with local resources for follow-up. She was instructed to return to the ER if fever develops or symptoms worsened. Patient verbalized an understanding of home care, medications, follow-up, and return to ED instructions and was in agreement with the plan of care. [] Dragon Disclaimer: Dragon Disclaimer: This electronic medical record was generated, in whole or in part, using a voice recognition dictation system. Departure Departure Impression: Primary Impression: Allergic rhinitis Additional Impressions: Hyperglycemia Acute folliculitis Disposition: 01 DC HOME SELF CARE/HOMELESS Condition: STABLE Referrals: NO PCP (PCP) Patient Instructions: Allergic Rhinitis, Diabetes Meal Planning Guide, Folliculitis, Hyperglycemia, [id number] Additional Instructions: Fill the prescription(s) and use as directed. Recommend that you take 10 mg of generic Zyrtec (cetirizine) or Claritin at bedtime and use over the counter F lonase (fluticasone) nasal spray 2 sprays each nostril once daily in the morning. You may take Tylenol or ibuprofen as needed for pain/fever. Increase clear fluids. Avoid triggers such as smoke, fragrance, dust, and pollen. You may take OTC cough suppressants as needed. Follow the diabetic diet information provided, you need to follow up with a primary care doctor about your elevated blood sugar. Apply warm, moist packs to the area of folliculitis to help decrease discomfort. Follow up with your primary care doctor or return to the ER in 48 hours to have wounds rechecked. Return to the ER sooner if your symptoms worsen or fever develops. [facility] [address] [place] [address] [facility] [address] [place] [address] [facility] [address] [facility] [place] [address] [facility] [address] [place] [address] [facility] [address] [place] [address] [facility] [address] [place] [address] [facility] [address] [place] [address] [facility] [address] [place] [address] [facility] [address] [place] [address] [facility] [address] [place] [address] . Scripts Clindamycin Hcl (CLINDAMYCIN HCL) 150 Mg Capsule 450 MG PO TID for 7 Days, #63 CAP 0 Refills Prov: TREE FOSTER APRN 03/29/20 Problem Qualifiers Primary Impression: Allergic rhinitis Allergic rhinitis trigger: unspecified Allergic rhinitis seasonality: unspecified Qualified Codes: J30.9 - Allergic rhinitis, unspecified TREE FOSTER SOLUTION SPECIALIST Mar 29, 2020 20:32
[2020-03-29 20:39] LABS: BILIRUBIN,URINE NEGATIVE (NEG); CALCIUM 9.1 mg/dL (8.5-10.1); CLARITY,URINE CLEAR; COLOR,URINE YELLOW; CREATININE 0.8 mg/dL (0.6-1.0); NITRITE,URINE NEGATIVE (NEG); POTASSIUM 3.4 mmol/L (3.5-5.1); PROTEIN,URINE NEGATIVE (NEG-TRACE)
[2020-03-29 20:45] LABS: ALBUMIN 3.7 g/dL (3.4-5.0); ALBUMIN/GLOBULIN RATIO 0.9 (1.0-1.7); TOTAL BILIRUBIN 0.4 mg/dL (0.2-1.0); TOTAL PROTEIN 7.7 g/dL (6.4-8.2)
[2020-03-29 20:48] LABS: BACTERIA,URINE 0 /HPF (0-FEW); WBC,URINE 0 /HPF (0-4)
--- NOTE | 2020-03-29 21:09 | RAD ---
Exam: Chest one view INDICATION: Cough TECHNIQUE: Frontal view of the chest Comparisons: 07/12/2019 FINDINGS: The cardiomediastinal silhouette and pulmonary vessels are within normal limits. The lung and pleural spaces are clear. IMPRESSION: No acute cardiopulmonary process. Electronically signed by: Iris Gutierres MD (03/29/2020 9:06 PM) TORY
[2020-03-29] MEDS ORDERED: LIDOCAINE 1%/EPI 1:100,000 20 ML VIAL. SQ ONE (22:00)
[2020-03-29] MEDS ORDERED: CLIN150C14 PO (22:13)
[2020-03-29] MEDS ORDERED: HYDROcodone/APAP 5/325MG 1 TAB TABLET PO ONE (22:30)
[2020-03-29 22:53] VITALS: BP 148/74
== END 2020-03-29 23:00 | disposition home or self-care (01) ==
LOC: ER 19:11
DX: L02.415 Cutaneous abscess of right lower limb (principal); J30.9 Allergic rhinitis, unspecified; R05 Cough; R09.81 Nasal congestion; L73.9 Follicular disorder, unspecified; E11.65 Type 2 diabetes mellitus with hyperglycemia; I10 Essential (primary) hypertension; Z98.51 Tubal ligation status
CPT/HCPCS: 10061; 36415; 71045; 80053; 81001; 82962; 85025; 96360; 96361; 99285; J3490; J7030

== ENCOUNTER 2020-11-28 13:36 | Emergency (ER) | payer OTHER ==
[~2020-11-28] VITALS: Ht 165.1 cm; Wt 75.0 kg
[~2020-11-28 13:36] MED LIST changes: +CLIN150C15 PO
[2020-11-28] MEDS ORDERED: ACETAMINOPHEN 325 MG TABLET. PO ONE (19:30)
[2020-11-28] MEDS ORDERED: BENZ100C PO (19:47)
--- NOTE | 2020-11-28 19:48 | PHYS DOC ---
Past Medical History Past Medical History: Diabetes-Type II, Hypertension Past Surgical History: Tubal ligation Smoking Status: Never Smoker Alcohol Use: None Drug Use: None General Adult EDM: Chief Complaint: FLU SYMPTOM HPI: HPI: Patient is a 40 year old female with a past medical history hypertension diab etes presents with a chief complaint of cough fever headache generalized weakness. Patient states symptoms have been ongoing for the last 8 days. Patient states she has a cough without sputum production. Patient states she has been taking ibuprofen for symptomatic relief. Patient is not vaccinated against Covid. She states her started to have a fever last night and her child started to have runny nose 2 or 3 days ago. On exam patient is not hypoxic oxygen saturations 97-98% on room air. Patient mildly tachycardic with a heart rate of 102 on the monitor when I examined the patient. Patient is a febrile. Patient's Covid test resulted positive. She was treated with Decadron IM. Patient discharged home with [place]. Review of Systems: Review of Systems: Review of systems: Constitutional symptoms- Positive fever, Positive chills. Eyes- No Discharge, No Visual Loss Respiratory symptoms- Positive shortness of breath, No wheezing, No Dyspnea on Exertion Positive cough Cardiovascular Systems; No chest pain, No Palpitations, No syncope Gastrointestinal symptoms: NO abdominal pain, no nausea, no vomiting or diarrhea. Genitourinary symptoms: No dysuria. Musculoskeletal symptoms: No back pain No extremity pain. Positive positive myalgias NEUROLOGICAL Symptoms: Positive headache, no generalized weakness; No focal Weakness Skin: No rash. Heart Score: C/O Chest Pain: N/A Risk Factors: Risk Factors: DM, Current or recent (<one month) smoker, HTN, HLP, family history of CAD, obesity. Risk Scores: Score 0 - 3: 2.5% MACE over next 6 weeks - Discharge Home Score 4 - 6: 20.3% MACE over next 6 weeks - Admit for Clinical Observation Score 7 - 10: 72.7% MACE over next 6 weeks - Early Invasive Strategies Current Medications: Current Medications Medications (Trade) Dose Ordered Sig/Silke Start Time Stop Time Status Last Admin Dose Admin Acetaminophen (Tylenol) 650 mg 1X ONCE 11/28/20 19:30 11/28/20 19:31 DC Allergies: Allergies: Allergies Coded Allergies Type Severity Reaction Last Updated Verified No Known Drug Allergies 10/17/16 No Physical Exam: PE: Constitutional: Well developed, well nourished, no acute distress, non-toxic appearance. [] HENT: Normocephalic, atraumatic, bilateral external ears normal, oropharynx moist, no oral exudates, nose normal. [] Eyes: PERRLA, EOMI, conjunctiva normal, no discharge. [] Neck: Normal range of motion, no tenderness, supple, no stridor. [] Cardiovascular:Heart rate regular rhythm, no murmur [] Lungs & Thorax: Bilateral breath sounds clear to auscultation [] Abdomen: Bowel sounds normal, soft, no tenderness, no masses, no pulsatile masses. [] Skin: Warm, dry, no erythema, no rash. [] Back: No tenderness, no CVA tenderness. [] Extremities: No tenderness, no cyanosis, no clubbing, ROM intact, no edema. [] Neurologic: Alert and oriented X 3, normal motor function, normal sensory function, no focal deficits noted. [] Psychologic: Affect normal, judgement normal, mood normal. [] Current Patient Data: Labs: Laboratory Tests Test 11/28/20 19:03 SARS-CoV-2 Antigen (Rapid) Positive (NEGATIVE) *A EKG: EKG: [] Performed at 1816 Rate [address] elevation No ST depression No acute MD Radiology/Procedures: Radiology/Procedures: [] Course & Med Decision Making: Course & Med Decision Making Pertinent Labs and Imaging studies reviewed. (See chart for details) [] Dragon Disclaimer: Dragon Disclaimer: This electronic medical record was generated, in whole or in part, using a voice recognition dictation system. Departure Departure Impression: Primary Impression: COVID-19 Disposition: HOME / SELF CARE / HOMELESS Condition: STABLE Referrals: NO PCP (PCP) Patient Instructions: Upper Respiratory Infection, Adult, Viral Infections Additional Instructions: Definicin Se le realiz la prueba de deteccin del COVID-19 o se le diagnostic dicha enfermedad. Es ponce infeccin ocasionada por un nuevo tipo de coronavirus. En la mayora de los casos, el COVID-19 provoca sntomas similares a los del resfriado. En algunas personas, puede ocasionar sntomas ms graves, cheryl problemas respiratorios. No existe un tratamiento para el virus COVID-19. El cuerpo elimina la infeccin con el tiempo. El cuidado personal ayuda a aliviar el malestar. Pasos que debe seguir 1. Cuidados personales Descanse cuando sea necesario. Los hbitos saludables pueden ayudarlo a sentirse mejor. Algunas medidas para lograr cambios incluyen lo siguiente: - Elija alimentos saludables, cheryl frutas y verduras. Ashley abundante cantidad de agua ronal todo el da. - Duerma pallavi por la noche. - Si fuma, intente no hacerlo. Thorp ayudar a mejorar la respiracin. - Evite el alcohol. 2. Mantenga sanos a los dems El virus puede contagiarse a otras personas. Cada vez que estornuda o tose, se liberan gotitas. Las gotitas pueden entrar en la boca, la nariz o los ojos de las personas que se encuentran cerca de usted y ocasionar la infeccin. Para reducir las probabilidades de contagiar el virus COVID-19 a otros, tenga en cuenta lo siguiente: - Qudese en casa el tiempo que el mdico se lo indique. Es posible que deba quedarse en casa hasta que la enfermedad desaparezca. Salga nicamente para recibir atencin mdica o en linda de urgencia. - Evite las reas pblicas, los eventos o el transporte pblico. No reanude las actividades laborales o escolares hasta que el mdico lo autorice. - Llame previamente si necesita asistir a un centro mdico. Avise que es posible que haya contrado COVID-19. Thorp ayudar a que le indiquen adonde debe dirigirse. Tambin pueden pedirle que use ponce mscara facial cuando vaya al consultorio. Si llama a los servicios de asistencia mdica de urgencias, avseles que es posible que haya contrado COVID-19. Mientras est en casa: - Evite el contacto directo con otras personas. Mantngase a ponce distancia aproximada de 2 metros. Si es posible, pasen la mayor parte del tiempo en harding separadas. - Use ponce mscara facial si estar en contacto directo con otras personas, por ejemplo, si compartir ponce habitacin o un vehculo. - Pida a alguien que limpie las superficies comunes de la casa. Limpie picaportes, mesadas y lavamanos con limpiadores domsticos todos los morgan. - Al toser o estornudar, cbrase con un pauelo de papel. Despus de usarlo, deschelo de inmediato. Si no tiene un pauelo de papel, tosa o estornude en el pliegue del codo. - Lvese las rita con frecuencia. Lvese las rita despus de estornudar o toser. Lvese con agua y jabn ronal, al menos, 20 segundos. Si no dispone de agua y jabn, use un limpiador de rita a base de alcohol. - No cocine para otros. Evite compartir objetos personales, cheryl tenedores, cucharas o cepillos de dientes. - Mientras est enfermo, evite el contacto directo con las mascotas. No hay indicios de si el virus se transmite a las mascotas. Esta es ponce medida de seguridad que debe tenerse en cuenta hasta que se sepa ms acerca de ursula virus. El aislamiento puede ser frustrante. La interaccin social puede ayudar. Mantngase en contacto con amigos y familiares por telfono u otros medios tecnolgicos. Puede interactuar con otras personas en el hogar, ricardo mantenga ponce distancia cheek de aproximadamente 2 metros. Seguimiento Las pruebas para confirmar la presencia del COVID-19 pueden demorar algunos morgan. Es posible que deba seguir los pasos mencionados anteriormente hasta que estn los resultados de las pruebas. Lo llamarn del consultorio mdico para saber si morillo habido algn cambio en nicholson reynaldo. Tambin le avisarn cuando pueda volver a estar cerca de otras personas. Problemas a los que debe estar atento Comunquese con el mdico si no se recupera segn lo previsto o si tiene problemas cheryl los siguientes: - Dificultad para respirar - Dolor de pecho - Empeoramiento de los sntomas Si calixto que tiene ponce urgencia, llame a los servicios de asistencia mdica de urgencias de inmediato. As taken from [employer] [facility] Benzonatate (TESSALON PERLE) 100 Mg Capsule 1 CAP PO TID, #30 CAP Prov: GAELN HIDALGO I DO 11/28/20 GALEN HIDALGO I DO Nov 28, 2020 19:48
[2020-11-28] MEDS: DEXAMETHASONE SOD PHOS 4 MG/ML VIAL IM ONE ×2 (20:12→20:15)
[2020-11-28] MEDS ORDERED: cloNIDine HCL 0.1 MG TABLET PO ONE (20:45)
[2020-11-28 20:56] VITALS: BP 141/84
--- NOTE | 2020-11-29 00:22 | EKG ---
[facility] [address] [place] [address] Test Date: 2020-11-28 Test Time: 18:16:05 Pat Name: CORNELIA SILVESTRE Department: Room: Gender: F Certified First Assistant: : 1980 Requested By: GALEN HIDALGO Order Number: [id number] Reading MD: Measurements Intervals [place] Rate: 104 P: 8 MI: 158 QRS: 19 QRSD: 76 T: 10 QT: 322 QTc: 429 Interpretive Statements SINUS TACHYCARDIA QRS(T) CONTOUR ABNORMALITY CONSIDER ANTEROLATERAL MYOCARDIAL DAMAGE POSSIBLY ABNORMAL ECG RI6.01 No previous ECG available for comparison
[2020-12-01] MEDS ORDERED: METO-239 PO (06:28)
[2020-12-01] MEDS ORDERED: CHOL10004 PO (06:28)
[2020-12-01] MEDS ORDERED: HYDR-2145 PO (06:28)
[2020-12-01] MEDS ORDERED: METF10007 PO (06:28)
== END 2020-11-28 21:00 | disposition home or self-care (01) ==
LOC: ER 13:36
DX: U07.1 COVID-19 (principal); I10 Essential (primary) hypertension; E11.9 Type 2 diabetes mellitus without complications
CPT/HCPCS: 87426; 96372; 99283; J1100; 93005

== ENCOUNTER 2020-12-25 23:01 | Emergency (ER) | payer OTHER ==
[~2020-12-25] VITALS: Ht 162.6 cm; Wt 97.0 kg
[~2020-12-25 23:01] MED LIST changes: +CHOL10004 PO; -CLIN150C15 PO; +CLIN150C16 PO; +HYDR-2145 PO; +INSU100V8 SQ; +METF10007 PO; +METO-239 PO; +PRED-220 PO
--- NOTE | 2020-12-25 23:19 | ED.ADGEN ---
Past Medical History Past Medical History: Diabetes-Type II, Hypertension Past Surgical History: Hysterectomy Smoking Status: Never Smoker Alcohol Use: Rarely Drug Use: None General Adult EDM: Chief Complaint: HYPERGLYCEMIA HPI: HPI: Patient is a 40 year old female coming in for 3 weeks of hyperglycemia. Patient states that her blood sugar has been over 300 since she was hospitalized for COVID-19 about 3 weeks ago. Patient states her blood pressures also been high. States she does not really get a doctor's appointment. Patient also complaining of chest pain and left arm numbness for the past few days that comes and goes, says been constant since yesterday. Also complaining of left ab dominal pain and periumbilical pain. No vomiting diarrhea, no urinary complaints. Review of Systems: Review of Systems: All other systems within normal limits except for as noted in the HPI Current Medications: Current Medications Medications (Trade) Dose Ordered Sig/Silke Start Time Stop Time Status Last Admin Dose Admin Acetaminophen (Tylenol) 1,000 mg 1X ONCE 12/26/20 00:00 12/26/20 00:01 DC 12/26/20 00:28 1,000 MG Info (CONTRAST GIVEN -- Rx MONITORING) 1 each PRN DAILY PRN 12/26/20 01:15 12/28/20 01:14 Iohexol (Omnipaque 300 Mg/ml) 75 ml 1X ONCE 12/26/20 01:30 12/26/20 01:31 DC 12/26/20 02:00 75 ML Ketorolac Tromethamine (Toradol 15mg Vial) 15 mg 1X ONCE 12/26/20 04:30 12/26/20 04:31 Allergies: Allergies: Allergies Coded Allergies Type Severity Reaction Last Updated Verified No Known Drug Allergies 10/17/16 No Physical Exam: PE: Constitutional: Well developed, well nourished, no acute distress, non-toxic appearance. [] HENT: Normocephalic, atraumatic, bilateral external ears normal, nose normal. [] Eyes: PERRLA, conjunctiva normal, no discharge. [] Neck: No rigidity, supple, no stridor. [] Cardiovascular: Regular rate and rhythm, brisk cap refill [] Lungs & Thorax: Non labored symmetric respirations, no tachypnea or respiratory distress [] Abdomen: Soft, nondistended, generalized tenderness. Skin: Warm, dry, no erythema, no rash. [] Back: Unremarkable Extremities: No deformities, range of motion grossly intact, no lower extremity edema [] Neurologic: Alert and oriented X 3, no focal deficits noted. [] Psychologic: Affect normal, judgement normal, mood normal. [] Current Patient Data: Labs: Laboratory Tests Test 12/25/20 01:51 12/25/20 23:14 12/25/20 23:41 12/26/20 03:30 D-Dimer ([place]) < 0.27 ug/mlFEU Glucose (Fingerstick) 326 mg/dL (70-99) H White Blood Count 6.8 x10^3/uL (4.0-11.0) Red Blood Count 4.48 x10^6/uL (3.50-5.40) Hemoglobin 13.3 g/dL (12.0-15.5) Hematocrit 38.8 % (36.0-47.0) Mean Corpuscular Volume 87 fL (79-100) Mean Corpuscular Hemoglobin 30 pg (25-35) Mean Corpuscular Hemoglobin Concent 34 g/dL (31-37) Red Cell Distribution Width 15.4 % (11.5-14.5) H Platelet Count 255 x10^3/uL (140-400) Neutrophils (%) (Auto) 58 % (31-73) Lymphocytes (%) (Auto) 32 % (24-48) Monocytes (%) (Auto) 7 % (0-9) Eosinophils (%) (Auto) 2 % (0-3) Basophils (%) (Auto) 1 % (0-3) Neutrophils # (Auto) 4.0 x10^3/uL (1.8-7.7) Lymphocytes # (Auto) 2.2 x10^3/uL (1.0-4.8) Monocytes # (Auto) 0.5 x10^3/uL (0.0-1.1) Eosinophils # (Auto) 0.1 x10^3/uL (0.0-0.7) Basophils # (Auto) 0.1 x10^3/uL (0.0-0.2) Sodium Level 135 mmol/L (136-145) L Potassium Level 3.5 mmol/L (3.5-5.1) Chloride Level 100 mmol/L (98-107) Carbon Dioxide Level 30 mmol/L (21-32) Anion Gap 5 (6-14) L Blood Urea Nitrogen 14 mg/dL (7-20) Creatinine 0.7 mg/dL (0.6-1.0) Estimated GFR (Cockcroft-Gault) 91.8 BUN/Creatinine Ratio 20 (6-20) Glucose Level 322 mg/dL (70-99) H Calcium Level 9.0 mg/dL (8.5-10.1) Phosphorus Level 2.9 mg/dL (2.6-4.7) Magnesium Level 1.6 mg/dL (1.8-2.4) L Total Bilirubin 0.3 mg/dL (0.2-1.0) Aspartate Amino Transferase (AST) 40 U/L (15-37) H Alanine Aminotransferase (ALT) 59 U/L (14-59) Alkaline Phosphatase 114 U/L (46-116) Troponin I Quantitative < 0.017 ng/mL (0.000-0.055) WU-Wxz-S-Type Natriuretic Peptide 26 pg/mL (0-124) Total Protein 6.9 g/dL (6.4-8.2) Albumin 3.3 g/dL (3.4-5.0) L Albumin/Globulin Ratio 0.9 (1.0-1.7) L Lipase 109 U/L (73-393) Urine Collection Type Unknown Urine Color Yellow Urine Clarity Clear Urine pH 6.0 (<5.0-8.0) Urine Specific [place] >=1.030 (1.000-1.030) Urine Protein Negative mg/dL (NEG-TRACE) Urine Glucose (UA) 100 mg/dL (NEG) Urine Ketones (Stick) Negative mg/dL (NEG) Urine Blood Large (NEG) Urine Nitrite Negative (NEG) Urine Bilirubin Negative (NEG) Urine Urobilinogen Dipstick 0.2 mg/dL (0.2 mg/dL) Urine Leukocyte Esterase Negative (NEG) Urine RBC 1-2 /HPF (0-2) Urine WBC 0 /HPF (0-4) Urine Squamous Epithelial Cells Few /LPF Urine Bacteria 0 /HPF (0-FEW) Urine Mucus Slight /LPF Laboratory Tests 12/25/20 23:41 Laboratory Tests 12/25/20 23:41 Vital Signs: Vital Signs Date Time Temp Pulse Resp B/P (MAP) Pulse Ox O2 Delivery O2 Flow Rate FiO2 12/26/20 01:14 88 20 132/61 (84) 98 Room Air EKG: EKG: [] Heart Score: C/O Chest Pain: No Risk Factors: Risk Factors: DM, Current or recent (<one month) smoker, HTN, HLP, family history of CAD, obesity. Risk Scores: Score 0 - 3: 2.5% MACE over next 6 weeks - Discharge Home Score 4 - 6: 20.3% MACE over next 6 weeks - Admit for Clinical Observation Score 7 - 10: 72.7% MACE over next 6 weeks - Early Invasive Strategies Radiology/Procedures: Radiology/Procedures: [] Course & Med Decision Making: Course & Med Decision Making Pertinent Labs and Imaging studies reviewed. (See chart for details) [] Dragon Disclaimer: Dragon Disclaimer: This electronic medical record was generated, in whole or in part, using a voice recognition dictation system. Departure Departure Impression: Primary Impression: Hyperglycemia Additional Impression: Fatty hernia of linea alba Disposition: HOME / SELF CARE / HOMELESS Condition: STABLE Referrals: NO PCP (PCP) Patient Instructions: Hyperglycemia Scripts Glipizide (GLIPIZIDE) 5 Mg Tablet 2.5 GM PO BID for diabetes for 30 Days, #60 TAB 3 Refills Prov: AVERY ESTRADA MD 12/26/20 Problem Qualifiers AVERY ESTRADA MD Dec 25, 2020 23:19
[2020-12-25 23:48] LABS: BASO # 0.1 x10^3/uL (0.0-0.2); BASO % 1 % (0-3); EOS # 0.1 x10^3/uL (0.0-0.7); EOS % 2 % (0-3); HEMATOCRIT 38.8 % (36.0-47.0); HEMOGLOBIN 13.3 g/dL (12.0-15.5); LYMPH # 2.2 x10^3/uL (1.0-4.8); LYMPH % 32 % (24-48); MEAN CORPUSCULAR HEMOGLOBIN 30 pg (25-35); MEAN CORPUSCULAR HGB CONC 34 g/dL (31-37); MEAN CORPUSCULAR VOLUME 87 fL (79-100); MONO # 0.5 x10^3/uL (0.0-1.1); MONO % 7 % (0-9); NEUT % 58 % (31-73); PLATELET COUNT 255 x10^3/uL (140-400); RED BLOOD COUNT 4.48 x10^6/uL (3.50-5.40); RED CELL DISTRIBUTION WIDTH 15.4 % (11.5-14.5); WHITE BLOOD COUNT 6.8 x10^3/uL (4.0-11.0)
[2020-12-26] MEDS ORDERED: ACETAMINOPHEN 500 MG TABLET PO ONE
[2020-12-26 00:01] LABS: CREATININE 0.7 mg/dL (0.6-1.0); GFR 91.8; POTASSIUM 3.5 mmol/L (3.5-5.1)
[2020-12-26 00:05] LABS: ALBUMIN 3.3 g/dL (3.4-5.0); ALBUMIN/GLOBULIN RATIO 0.9 (1.0-1.7); MAGNESIUM 1.6 mg/dL (1.8-2.4); PHOSPHORUS 2.9 mg/dL (2.6-4.7); TOTAL BILIRUBIN 0.3 mg/dL (0.2-1.0); TOTAL PROTEIN 6.9 g/dL (6.4-8.2)
[2020-12-26] MEDS ORDERED: CONTRAST GIVEN. MC PRN (01:15)
--- NOTE | 2020-12-26 01:15 | EKG ---
[facility] [address] [place] [address] Test Date: 2020-12-25 Test Time: 23:34:59 Pat Name: CORNELIA SILVESTRE Department: Room: Gender: F Economic Developer: : 1980 Requested By: AVERY ESTRADA Order Number: [id number] Reading MD: Measurements Intervals [place] Rate: 90 P: 33 ME: 168 QRS: 23 QRSD: 76 T: 15 QT: 350 QTc: 432 Interpretive Statements SINUS RHYTHM LEFT ATRIAL ABNORMALITY NON SPECIFIC T ABNORMALITY ABNORMAL ECG RI6.02 No previous ECG available for comparison
[2020-12-26] MEDS ORDERED: IOHEXOL 300 MG/ML 100ML VIAL. IV ONE (01:30)
--- NOTE | 2020-12-26 02:50 | RAD ---
CT chest, abdomen and pelvis with contrast PQRS statement: CT scans at this facility use dose reduction including either automated exposure cont rol, iterative reconstructions, and /or weight based radiation dosing via mA and kV modification when appropriate to reduce radiation dose to as low as reasonably achievable. Contrast: 75 mL Omnipaque 300 intravenous contrast. HISTORY: Left-sided chest pain. Abdominal pain. Chest findings: Ascending aorta diameter 3.1 cm. Tortuosity aortic arch. Heart size upper limits of n ormal. Aorta, pulmonary vessels and esophagus are unremarkable. No enlarged adenopathy in the chest. Indeterminate hypervascular lesions within the liver largest measuring 2 cm left hepatic lobe segment s of the areas a small bony projection along the lower cortex of the left posterior fifth rib project ing of extrapleural space may be an osteochondroma. Trachea and bronchi are unremarkable. No pneumoth orax. No pleural effusions. There are indistinct bilateral pulmonary groundglass opacities with mild mosaic attenuation of the lungs at the bilateral upper lobes greater than lower lobes. Abdomen findings: The hypervascular liver lesions are not apparent and there is enhancing on this por anthony venous phase abdominal imaging. Gallbladder, pancreas, adrenal glands, spleen, small accessory sp leens and kidneys are unremarkable. There is mild fold thickening of the proximal jejunum at the uppe r abdomen. No bowel obstruction. Appendix is negative. Moderate volume of stool. No abdominal fluid o r adenopathy. 3 x 2 cm fatty umbilical abdominal wall hernia with edema of the herniated fat could in dicate incarceration. No herniation of bowel. Pelvis findings: Fallopian tubal ligation clips. Uterus, bladder, rectum and bones are unremarkable. No pelvic fluid or adenopathy. IMPRESSION: 1. 3 x 2 cm fatty umbilical abdominal wall hernia with edema of the herniated fat which may indicate incarceration. 2. Mild pulmonary groundglass opacities with mosaic attenuation of the lung parenchyma raising the po ssibility of an underlying infectious/inflammatory process. 3. Appendix is negative. 4. 3 hypervascular lesions of the liver largest measuring 2 cm apparent on the earlier phase postcont rast chest imaging, which are not apparent and are isoenhancing on the later venous phase abdominal i maging. These are indeterminate. These could be further assessed with outpatient MR imaging. 5. 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 Abutme nt of the neurovascular bundle by this bony projection contributing to left-sided chest pain is a pos sibility. Electronically signed by: Goyo Caceres MD (12/26/2020 2:47 AM) [facility]
[2020-12-26 03:41] LABS: BILIRUBIN,URINE NEGATIVE (NEG); CLARITY,URINE CLEAR; COLOR,URINE YELLOW; NITRITE,URINE NEGATIVE (NEG); PROTEIN,URINE NEGATIVE (NEG-TRACE); UROBILINOGEN,URINE 0.2 mg/dL (0.2 mg/dL)
[2020-12-26 03:48] LABS: BACTERIA,URINE 0 /HPF (0-FEW); WBC,URINE 0 /HPF (0-4)
[2020-12-26] MEDS ORDERED: GLIP5TAB10 PO (04:23)
[2020-12-26] MEDS ORDERED: KETOROLAC 15 MG/ML VIAL. IVP ONE (04:30)
[2020-12-26 04:55] LABS: U PREG PATIENT NEGATIVE (NEG)
[2020-12-26 05:00] VITALS: BP 126/83
== END 2020-12-26 05:00 | disposition home or self-care (01) ==
LOC: ER 23:01
DX: E11.65 Type 2 diabetes mellitus with hyperglycemia (principal); K43.9 Ventral hernia without obstruction or gangrene; R07.89 Other chest pain; I10 Essential (primary) hypertension; Z90.710 Acquired absence of both cervix and uterus
CPT/HCPCS: 36415; 71260; 74177; 80053; 81001; 81025; 82962; 83690; 83735; 83880; 84100; 84484; 85025; 85379; 93005; 96374; 99284; J1885; Q9967; 99285-25

== ENCOUNTER 2021-01-09 13:24 | Inpatient (IN) | payer OTHER ==
[~2021-01-09] VITALS: Ht 162.6 cm; Wt 96.6 kg
[~2021-01-09 13:24] MED LIST changes: +GLIP5TAB10 PO
[2021-01-09] MEDS ORDERED: fentaNYL PF VIAL 100 MCG/2 ML VIAL ONE (14:27)
[2021-01-09] MEDS ORDERED: ONDANSETRON PF 4 MG/2 ML VIAL. ONE (14:27)
[2021-01-09] MEDS ORDERED: IV NORMAL SALINE 1000ML BAG 1,000 ML IV ONE ×2 (14:30→16:45)
[2021-01-09] MEDS ORDERED: fentaNYL PF VIAL 100 MCG/2 ML VIAL IVP ONE (14:30)
[2021-01-09] MEDS ORDERED: ONDANSETRON PF 4 MG/2 ML VIAL. IVP ONE (14:30)
[2021-01-09 14:41] LABS: BASO # 0.1 x10^3/uL (0.0-0.2); BASO % 1 % (0-3); EOS # 0.1 x10^3/uL (0.0-0.7); EOS % 1 % (0-3); HEMATOCRIT 39.6 % (36.0-47.0); HEMOGLOBIN 13.4 g/dL (12.0-15.5); LYMPH # 1.9 x10^3/uL (1.0-4.8); LYMPH % 16 % (24-48); MEAN CORPUSCULAR HEMOGLOBIN 29 pg (25-35); MEAN CORPUSCULAR HGB CONC 34 g/dL (31-37); MEAN CORPUSCULAR VOLUME 86 fL (79-100); MONO # 0.8 x10^3/uL (0.0-1.1); MONO % 7 % (0-9); NEUT # 8.9 x10^3/uL (1.8-7.7); NEUT % 76 % (31-73); PLATELET COUNT 341 x10^3/uL (140-400); RED BLOOD COUNT 4.59 x10^6/uL (3.50-5.40); RED CELL DISTRIBUTION WIDTH 15.7 % (11.5-14.5); WHITE BLOOD COUNT 11.8 x10^3/uL (4.0-11.0)
[2021-01-09 14:56] LABS: CALCIUM 9.5 mg/dL (8.5-10.1); CREATININE 0.6 mg/dL (0.6-1.0); GFR 109.6; POTASSIUM 3.7 mmol/L (3.5-5.1)
[2021-01-09 14:56] LABS: BILIRUBIN,URINE NEGATIVE (NEG); CLARITY,URINE CLEAR; COLOR,URINE YELLOW; NITRITE,URINE NEGATIVE (NEG); PH,URINE 5.5 (<5.0-8.0); PROTEIN,URINE NEGATIVE (NEG-TRACE); UROBILINOGEN,URINE 0.2 mg/dL (0.2 mg/dL)
[2021-01-09] MEDS ORDERED: HYDROmorphone 2 MG/ML VIAL IVP ONE ×2 (15:00→17:00)
[2021-01-09 15:01] LABS: ALBUMIN 3.6 g/dL (3.4-5.0); ALBUMIN/GLOBULIN RATIO 0.9 (1.0-1.7); C-REACTIVE PROTEIN 20.5 mg/L (0-3.3); MAGNESIUM 1.8 mg/dL (1.8-2.4); PHOSPHORUS 2.5 mg/dL (2.6-4.7); TOTAL BILIRUBIN 0.4 mg/dL (0.2-1.0); TOTAL PROTEIN 7.6 g/dL (6.4-8.2)
[2021-01-09 15:04] LABS: BACTERIA,URINE 0 /HPF (0-FEW); RBC,URINE 0 /HPF (0-2); WBC,URINE 0 /HPF (0-4)
[2021-01-09 15:08] LABS: CREATINE KINASE 63 U/L (26-192)
[2021-01-09 15:10] LABS: U PREG PATIENT NEGATIVE (NEG)
[2021-01-09] MEDS ORDERED: IOHEXOL 300 MG/ML 100ML VIAL. IV ONE (15:15)
[2021-01-09] MEDS ORDERED: CONTRAST GIVEN. MC PRN (15:15)
--- NOTE | 2021-01-09 15:41 | RAD ---
Exam: CT of abdomen and pelvis with contrast INDICATION: Supraumbilical pain, near hernia site TECHNIQUE: Sequential axial images through the abdomen and pelvis obtained following the administrati on of 75 mL of Omni 300 IV contrast. Sagittal and coronal reformatted images were reconstructed from the axial data and reviewed. Exposure: One or more of the following in the visualized dose reduction techniques were utilized for this examination: 1. Automated exposure control 2. Adjustment of the MA and/or KV according to patient size 3. Use of iterative of reconstructive technique Comparisons: 12/26/2020 FINDINGS: Heart size is normal. No pericardial effusion. Strandy bibasilar airspace disease. No pleural effusio n. Liver, spleen, pancreas, gallbladder and adrenals are unremarkable. No perinephric inflammation or hydronephrosis. No renal or ureteral calculi are identified. Bladder is partially distended and not well evaluated. Uterus is not enlarged. There is a umbilical hernia which contains a short segment of small bowel. The herniated bowel is mil dly dilated. Otherwise, Large and small bowel are unremarkable. Appendix is nonidentified. No free ab dominal air or fluid. No obstruction. Abdominal aorta has normal course and caliber. Abdominal vasculature is patent. No enlarged abdominal lymph nodes are identified. No suspicious osseous lesions or acute fractures. IMPRESSION: Umbilical hernia which contains a short segment of small bowel which is mildly dilated. The more prox imal small bowel is also mildly dilated suggesting early or partial obstruction. Electronically signed by: Iris Gutierres MD (01/09/2021 3:38 PM) [facility]
--- NOTE | 2021-01-09 16:27 | PHYS DOC ---
Past Medical History Past Medical History: Diabetes-Type II, Hypertension Additional Past Medical Histor: Covid-19 on 11/29/20 (TOMY PRECIADO APRN) Past Surgical History: Tubal ligation (TOMY PRECIADO APRN) Smoking Status: Former Smoker Alcohol Use: None Drug Use: None (TOMY PRECIADO APRN) General Adult EDM: Chief Complaint: ABDOMINAL PAIN HPI: HPI: Patient is a 40 year old female presents to the emergency department c omplaining of pain to just above her bellybutton that started last night approximately 9:00, patient states it was tolerable then rated at a 4 out of 10. Patient denied any nausea or vomiting at time of onset. Patient reports she was woken up this morning with abdominal pain, states she ate 2 donuts and a milkshake for breakfast without relief in abdominal pain. Patient reports her pain being at her hernia site in her abdomen. Patient complains her pain is now a 10 out of 10. Patient denies taking any medications at home for her pain, denies trying any nonpharmacological pain relief therapies at home prior to arrival. Patient reports she had a bowel movement this morning, states her st ool is hard, patient reports having a long history of constipation problems. Patient denies vaginal discharge, denies urinary pressure, increased frequency, or urinary burning, denies STI concerns. Patient denies fever chills, shortness of breath, chest pains, chest congestion or nasal congestion. She reports receiving the COVID-19 virus vaccination yesterday first dose, Pfizer type. Patient denies any other physical complaints or physical concerns. Patient reports a past surgical history of bilateral tubal ligation in 2016. (TOMY PRECIADO APRN) Review of Systems: Review of Systems: 14 body systems of review of systems have been reviewed. See HPI for pertinent positives and negative responses, otherwise all other systems are negative, nonpertinent or noncontributory. Constitutional: Negative except as outlined in HPI above. Skin: Negative except as outlined in HPI above. Eyes: Negative except as outlined in HPI above. HENT: Negative except as outlined in HPI above. Respiratory: Negative except as outlined in HPI above. Cardiovascular: Negative except as outlined in HPI above. GI: Negative except as outlined in HPI above. : Negative except as outlined in HPI above. Musculoskeletal: Negative except as outlined in HPI above. Integument: Negative except as outlined in HPI above. Neurologic: Negative except as outlined in HPI above. Endocrine: Negative except as outlined in HPI above. Lymphatic: Negative except as outlined in HPI above. Psychiatric: Negative except as outlined in HPI above. (TOMY PRECIADO APRN) Heart Score: C/O Chest Pain: No Risk Factors: Risk Factors: DM, Current or recent (<one month) smoker, HTN, HLP, family history of CAD, obesity. Risk Scores: Score 0 - 3: 2.5% MACE over next 6 weeks - Discharge Home Score 4 - 6: 20.3% MACE over next 6 weeks - Admit for Clinical Observation Score 7 - 10: 72.7% MACE over next 6 weeks - Early Invasive Strategies (TOMY PRECIADO APRN) Current Medications: Current Medications Medications (Trade) Dose Ordered Sig/Silke Start Time Stop Time Status Last Admin Dose Admin Fentanyl Citrate (Fentanyl 2ml Vial) 100 mcg 1X ONCE 01/09/21 14:30 01/09/21 14:31 DC 01/09/21 14:30 100 MCG Hydromorphone HCl (Dilaudid) 1 mg 1X ONCE 01/09/21 15:00 01/09/21 15:01 DC 01/09/21 15:07 1 MG Info (CONTRAST GIVEN -- Rx MONITORING) 1 each PRN DAILY PRN 01/09/21 15:15 01/11/21 15:14 Iohexol (Omnipaque 300 Mg/ml) 75 ml 1X ONCE 01/09/21 15:15 01/09/21 15:16 DC 01/09/21 15:12 75 ML Ondansetron HCl (Zofran) 4 mg 1X ONCE 01/09/21 14:30 01/09/21 14:31 DC 01/09/21 14:30 4 MG Sodium Chloride 1,000 ml @ 1,000 mls/hr 1X ONCE 01/09/21 14:30 01/09/21 15:29 DC 01/09/21 14:29 1,000 MLS/HR (TOMY PRECIADO APRN) Allergies: Allergies: Allergies Coded Allergies Type Severity Reaction Last Updated Verified No Known Drug Allergies 01/09/21 No (TOMY PRECIADO APRN) Physical Exam: PE: Constitutional: Well developed, well nourished, appears in severe pain and distress, non-toxic appearance. Patient is holding abdomen, rolling around in bed moaning in pain during physical examination, asking for pain medications. HENT: Normocephalic, atraumatic. No lymphadenopathy of the head and neck appreciated. Patient speaking in normal voice tones. Eyes: Conjunctiva normal, no discharge. Neck: Normal range of motion. No nuchal rigidity, no meningismus signs. Cardiovascular: Distal cap refill less than 2 seconds, no cyanosis appreciated. Lungs & Thorax: Patient is in no respiratory distress, no adventitious lung sounds appreciated. Abdomen: Bowel sounds hypoactive, soft, no pulsatile masses. No bruising or skin discoloration of the abdomen. Nonreducible hernia palpated just above umbilicus, elicited severe pain during palpation. Skin: Warm, dry, no erythema, no rash. Back: No tenderness, no CVA tenderness. Extremities: No tenderness, no cyanosis, no clubbing, ROM intact, no edema. Neurologic: Alert and oriented X 3, normal motor function, normal sensory function, no focal deficits noted. Psychologic: Affect normal, judgement normal, mood normal. (TOMY PRECIADO APRN) Current Patient Data: Labs: Laboratory Tests Test 01/09/21 14:13 01/09/21 14:20 Urine Collection Type Unknown Urine Color Yellow Urine Clarity Clear Urine pH 5.5 (<5.0-8.0) Urine Specific [place] 1.010 (1.000-1.030) Urine Protein Negative mg/dL (NEG-TRACE) Urine Glucose (UA) Negative mg/dL (NEG) Urine Ketones (Stick) Negative mg/dL (NEG) Urine Blood Negative (NEG) Urine Nitrite Negative (NEG) Urine Bilirubin Negative (NEG) Urine Urobilinogen Dipstick 0.2 mg/dL (0.2 mg/dL) Urine Leukocyte Esterase Negative (NEG) Urine RBC 0 /HPF (0-2) Urine WBC 0 /HPF (0-4) Urine Squamous Epithelial Cells Few /LPF Urine Bacteria 0 /HPF (0-FEW) Urine Mucus Slight /LPF Urine Test Negative (NEG) White Blood Count 11.8 x10^3/uL (4.0-11.0) H Red Blood Count 4.59 x10^6/uL (3.50-5.40) Hemoglobin 13.4 g/dL (12.0-15.5) Hematocrit 39.6 % (36.0-47.0) Mean Corpuscular Volume 86 fL (79-100) Mean Corpuscular Hemoglobin 29 pg (25-35) Mean Corpuscular Hemoglobin Concent 34 g/dL (31-37) Red Cell Distribution Width 15.7 % (11.5-14.5) H Platelet Count 341 x10^3/uL (140-400) Neutrophils (%) (Auto) 76 % (31-73) H Lymphocytes (%) (Auto) 16 % (24-48) L Monocytes (%) (Auto) 7 % (0-9) Eosinophils (%) (Auto) 1 % (0-3) Basophils (%) (Auto) 1 % (0-3) Neutrophils # (Auto) 8.9 x10^3/uL (1.8-7.7) H Lymphocytes # (Auto) 1.9 x10^3/uL (1.0-4.8) Monocytes # (Auto) 0.8 x10^3/uL (0.0-1.1) Eosinophils # (Auto) 0.1 x10^3/uL (0.0-0.7) Basophils # (Auto) 0.1 x10^3/uL (0.0-0.2) Erythrocyte Sedimentation Rate 34 (0-25) H Sodium Level 140 mmol/L (136-145) Potassium Level 3.7 mmol/L (3.5-5.1) Chloride Level 102 mmol/L (98-107) Carbon Dioxide Level 24 mmol/L (21-32) Anion Gap 14 (6-14) Blood Urea Nitrogen 11 mg/dL (7-20) Creatinine 0.6 mg/dL (0.6-1.0) Estimated GFR (Cockcroft-Gault) 109.6 BUN/Creatinine Ratio 18 (6-20) Glucose Level 156 mg/dL (70-99) H Calcium Level 9.5 mg/dL (8.5-10.1) Phosphorus Level 2.5 mg/dL (2.6-4.7) L Magnesium Level 1.8 mg/dL (1.8-2.4) Total Bilirubin 0.4 mg/dL (0.2-1.0) Aspartate Amino Transferase (AST) 22 U/L (15-37) Alanine Aminotransferase (ALT) 37 U/L (14-59) Alkaline Phosphatase 107 U/L (46-116) Creatine Kinase 63 U/L (26-192) Creatine Kinase MB (Mass) 0.7 ng/mL (0.0-3.6) Creatine Kinase MB Relative Index % (0-4) C-Reactive Protein, Quantitative 20.5 mg/L (0-3.3) H Total Protein 7.6 g/dL (6.4-8.2) Albumin 3.6 g/dL (3.4-5.0) Albumin/Globulin Ratio 0.9 (1.0-1.7) L Lipase 87 U/L (73-393) Laboratory Tests 01/09/21 14:20 Laboratory Tests 01/09/21 14:20 Vital Signs: Vital Signs Date Time Temp Pulse Resp B/P (MAP) Pulse Ox O2 Delivery O2 Flow Rate FiO2 01/09/21 14:30 16 98 Room Air 01/09/21 13:58 98.0 81 206/97 (97) 98.0 (TOMY PRECIADO APRN) EKG: EKG: [] (TOMY PRECIADO APRN) Radiology/Procedures: Radiology/Procedures: PATIENT: CORNELIA SILVESTRE CACCOUNT: [id number] : 1980 LOCATION: ER AGE: 40 SEX: F EXAM STATUS: REG ER ORD. PHYSICIAN: TOMY PRECIADO APRN REASON: Supraumbilical pain near hernia site PROCEDURE: CT ABD PELV W/ IV CONTRST ONLY Exam: CT of abdomen and pelvis with contrast INDICATION: Supraumbilical pain, near hernia site TECHNIQUE: Sequential axial images through the abdomen and pelvis obtained following the administration of 75 mL of Omni 300 IV contrast. Sagittal and coronal reformatted images were reconstructed from the axial data and reviewed. Exposure: One or more of the following in the visualized dose reduction techniques were utilized for this examination: 1. Automated exposure control 2. Adjustment of the MA and/or KV according to patient size 3. Use of iterative of reconstructive technique Comparisons: 12/26/2020 FINDINGS: Heart size is normal. No pericardial effusion. Strandy bibasilar airspace disease. No pleural effusion. Liver, spleen, pancreas, gallbladder and adrenals are unremarkable. No perinephric inflammation or hydronephrosis. No renal or ureteral calculi are identified. Bladder is partially distended and not well evaluated. Uterus is not enlarged. There is a umbilical hernia which contains a short segment of small bowel. The herniated bowel is mildly dilated. Otherwise, Large and small bowel are unremarkable. Appendix is nonidentified. No free abdominal air or fluid. No obstruction. Abdominal aorta has normal course and caliber. Abdominal vasculature is patent. No enlarged abdominal lymph nodes are identified. No suspicious osseous lesions or acute fractures. IMPRESSION: Umbilical hernia which contains a short segment of small bowel which is mildly dilated. The more proximal small bowel is also mildly dilated suggesting early or partial obstruction. Electronically signed by: Iris Gutierres MD (01/09/2021 3:38 PM) [facility] (TOMY PRECIADO APRN) Course & Med Decision Making: Course & Med Decision Making Pertinent Labs and Imaging studies reviewed. (See chart for details) 40-year-old female, vital signs reviewed, presents emergency department concerning severe abdominal pain. Patient's physical examination concerning for incarcerated hernia versus other acute abdominal process. Will order IV, normal saline, pain medication, urinalysis assay, CT abdomen pelvis with IV co ntrast. The patient's urine is not infected, the patient is not , slight leukocytosis at 11.8 without bandemia. Blood sugar is 156, otherwise serum chemistries equivocal. Patient CT abdomen concerning small bowel obstruction, discussed with patient recommendation for admission, patient is amenable to this plan, upon reevaluation of the patient, patient reports her pain is now a 4 out of 10. Patient does report vomiting while she was in the waiting room today in the emergency department, patient reports she did not remember as she was in so much pain during the initial examination. Called and discussed patient case and ED work-up with inpatient management physician Dr. Taylor who agrees patient case warrants admission however wishes to examine patient first in the emergency department before making final decision, Dr. Taylor recommended trialing patient toleration of p.o. challenge with water. Patient given ice water at bedside, patient denies nausea at this time, patient tolerated small sips before reporting increased pain, no further p.o. challenge at this time. Dr. Taylor recommended consulting surgery to review case. Dr. Taylor at bedside to examine patient, agrees patient's physical examination warrants admission to the medical surgical unit for small bowel obstruction, abdominal pain, abdominal hernia. A page has been made to general surgery to review case, awaiting return call at this time.3 Spoke with general surgeon Dr. Keene who is aware of patient case states admission to Dr. Taylor as primary, he will consult. (TOMY PRECIADO APRN) Dragon Disclaimer: Dragon Disclaimer: This electronic medical record was generated, in whole or in part, using a voice recognition dictation system. (TOMY PRECIADO APRN) Departure Departure Impression: Primary Impression: Umbilical hernia Qualified Codes: K42.0 - Umbilical hernia with obstruction, without gangrene Additional Impressions: Small bowel obstruction Abdominal pain Qualified Codes: R10.84 - Generalized abdominal pain Disposition: ADMITTED INPATIENT Admitting Physician: HIMS (Admit to Dr. Taylor to the MedSur unit, consult Dr. Keene.) (TOMY PRECIADO APRN) Condition: STABLE Referrals: NO PCP (PCP) Attending Signature I have participated in the care of this patient and I have reviewed and agree with all pertinent clinical information above including history, exam, and recommendations. (KIMMY CONTI DO) TOMY PRECIADO APRN Jan 09, 2021 16:27 KIMMY CONTI DO Jan 09, 2021 16:53
[2021-01-09] MEDS ORDERED: ONDANSETRON PF 4 MG/2 ML VIAL. IVP PRN ×2 (16:45→17:30)
[2021-01-09] MEDS ORDERED: MORPHINE SULFATE 4 MG/ML INJ. IVP PRN (16:45)
[2021-01-09] MEDS ORDERED: hydrALAZINE 20 MG/ML VIAL. IVP PRN (17:00)
--- NOTE | 2021-01-09 17:10 | PDOC1 ---
History and Physical Date of Admission Date of Admission DATE: 01/09/21 TIME: 16:57 Identification/Chief Complaint Chief Complaint Abdominal pain Source Source: Chart review, Patient History of Present Illness History of Present Illness Patient is a 40-year-old female with past medical history DM2, HTN, umbilical hernia, who presents to the ED with complaints of abdominal pain since yesterday. Abdominal pain is worse with movement. She reports associated nausea, vomiting, abdominal distention. States last time she vomited was just recently in the ED. Labs on admission showed WBC 11.8, CBG 156. CT abdomen/pelvis showed umbilical hernia which contains a short segment of small bowel which is mildly dilated; the more proximal small bowel is mildly dilated suggesting early or partial obstruction. He was treated with IV Dilaudid with improvement in her pain. Will admit patient for further medical management. Past Medical History Past Medical History DM2, HTN, abdominal hernia Past Surgical History Past Surgical History: No pertinent history Family History Family History: Diabetes, Hypertension Social History Smoke: No ALCOHOL: occassional Drugs: None Current Problem List Problem List Problems Medical Problems: (1) Abdominal pain Status: Acute (2) Small bowel obstruction Status: Acute (3) Umbilical hernia Status: Acute Current Medications Current Medications Current Medications Ondansetron HCl (Zofran) 4 mg STK-MED ONCE .ROUTE ; Start 01/09/21 at 14:27; Stop 01/09/21 at 14:28; Status DC Fentanyl Citrate (Fentanyl 2ml Vial) 100 mcg STK-MED ONCE .ROUTE ; Start 01/09/21 at 14:27; Stop 01/09/21 at 14:28; Status DC Ondansetron HCl (Zofran) 4 mg 1X ONCE IVP Last administered on 01/09/21at 14:30; Start 01/09/21 at 14:30; Stop 01/09/21 at 14:31; Status DC Sodium Chloride 1,000 ml @ 1,000 mls/hr 1X ONCE IV Last administered on 12/12 06/01at 14:29; Start 01/09/21 at 14:30; Stop 01/09/21 at 15:29; Status DC Fentanyl Citrate (Fentanyl 2ml Vial) 100 mcg 1X ONCE IVP Last administered on 01/09/21at 14:30; Start 01/09/21 at 14:30; Stop 01/09/21 at 14:31; Status DC Hydromorphone HCl (Dilaudid) 1 mg 1X ONCE IVP Last administered on 01/09/21at 15:07; Start 01/09/21 at 15:00; Stop 01/09/21 at 15:01; Status DC Iohexol (Omnipaque 300 Mg/ml) 75 ml 1X ONCE IV Last administered on 01/09/21at 15:12; Start 01/09/21 at 15:15; Stop 01/09/21 at 15:16; Status DC Info (CONTRAST GIVEN -- Rx MONITORING) 1 each PRN DAILY PRN MC SEE COMMENTS; Start 01/09/21 at 15:15; Stop 01/11/21 at 15:14 Sodium Chloride 1,000 ml @ 125 mls/hr 1X ONCE IV ; Start 01/09/21 at 16:45; Stop 01/10/21 at 00:44 Ondansetron HCl (Zofran) 4 mg PRN Q8HRS PRN IVP NAUSEA/VOMITING; Start 01/09/21 at 16:45; Stop 01/10/21 at 16:44 Morphine Sulfate (Morphine Sulfate) 4 mg PRN Q2HR PRN IVP PAIN; Start 01/09/21 at 16:45; Stop 01/10/21 at 16:44 Hydromorphone HCl (Dilaudid) 1 mg 1X ONCE IVP ; Start 01/09/21 at 17:00; Stop 01/09/21 at 17:01 Active Scripts Active Glipizide 5 Mg Tablet 2.5 Gm PO BID 30 Days Lantus (Insulin Glargine,Hum.rec.anlog) 100 Unit/1 Ml Vial 15 Unit SQ QHS 30 Days Hydrochlorothiazide Tablet (Hydrochlorothiazide) 25 Mg Tablet 25 Mg PO DAILY Metoprolol Succinate ( Xl ) (Metoprolol Succinate) 25 Mg Tab.er.24h 25 Mg PO DAILY Metformin Hcl 1,000 Mg Tablet 1,000 Mg PO BIDWMEALS Tessalon Perle (Benzonatate) 100 Mg Capsule 1 Cap PO TID PRN Prednisone (Prednisone) 10 Mg Tablet 10 Mg PO UD Take 4 tablets by mouth daily for 3 days, then take 3 tablets by mouth daily for 2 days, then take 2 tablets by mouth daily for 2 days, then take 1 tablets by mouth daily for 2 days, then stop. Codeine-Guaifen 10-100 mg/5 ml (Guaifenesin/Codeine Phosphate) 120 Ml Liquid 5 Ml PO PRN Q6HRS PRN MDD 20 Milliliter(s) 6 Days Ondansetron Odt (Ondansetron) 4 Mg Tab.rapdis 1 Tab PO PRN Q6-8HRS Potassium Chloride (Potassium Chloride) 10 Meq Capsule.er 10 Meq PO DAILY 5 Days Proair Respiclick (Albuterol Sulfate) 90 Mcg Aer.pow.ba 1 Puff IH PRN Q6HRS PRN Reported Vitamin D3 (Vitamin D) 25 Mcg Tablet 25 Mcg PO DAILY 1,000 UNITS = 25 MCG Allergies Allergies: Coded Allergies: No Known Drug Allergies (Unverified , 01/09/21) ROS Review of System GENERAL: No history of weight change, weakness or fevers. SKIN: No bruising, hair changes or rashes. EYES: No blurred, double or loss of vision. NOSE AND THROAT: No history of nosebleeds, hoarseness or sore throat. HEART: Denies chest pain, denies palpitations. LUNGS: Denies cough, hemoptysis, wheezing or shortness of breath. GASTROINTESTINAL: Abdominal pain, nausea, vomiting, abdominal distention. GENITOURINARY: Denies dysuria, frequency, urgency, hematuria. NEUROLOGIC: Denies history of numbness, tingling, tremor or weakness. PSYCHIATRIC: Denies anxiety, denies depression. ENDOCRINE: No history of heat or cold intolerance, polyuria or polydipsia. EXTREMITIES: Denies muscle weakness, joint pain, pain on walking or stiffness. Physical Exam Physical Exam General: Alert, Oriented X3, Cooperative, moderate distress HEENT: PERRLA, EOMI Lungs: Clear to auscultation, Normal air movement Heart: RRR, no murmurs Cardiovascular: S1, S2 Abdomen: Periumbilical abdominal tenderness. Abdomen soft. Extremities: No clubbing, No cyanosis Skin: No rashes, No significant lesion Neuro: Normal speech, Normal tone, Sensation intact Psych/Mental Status: Mental status NL, Mood NL Vitals Vitals Vital Signs Date Time Temp Pulse Resp B/P (MAP) Pulse Ox O2 Delivery O2 Flow Rate FiO2 01/09/21 14:30 16 98 Room Air 01/09/21 13:58 98.0 81 206/97 (97) 98.0 Labs Labs Laboratory Tests Test 01/09/21 14:13 01/09/21 14:20 Urine Collection Type Unknown Urine Color Yellow Urine Clarity Clear Urine pH 5.5 (<5.0-8.0) Urine Specific [place] 1.010 (1.000-1.030) Urine Protein Negative mg/dL (NEG-TRACE) Urine Glucose (UA) Negative mg/dL (NEG) Urine Ketones (Stick) Negative mg/dL (NEG) Urine Blood Negative (NEG) Urine Nitrite Negative (NEG) Urine Bilirubin Negative (NEG) Urine Urobilinogen Dipstick 0.2 mg/dL (0.2 mg/dL) Urine Leukocyte Esterase Negative (NEG) Urine RBC 0 /HPF (0-2) Urine WBC 0 /HPF (0-4) Urine Squamous Epithelial Cells Few /LPF Urine Bacteria 0 /HPF (0-FEW) Urine Mucus Slight /LPF Urine Test Negative (NEG) White Blood Count 11.8 x10^3/uL (4.0-11.0) Red Blood Count 4.59 x10^6/uL (3.50-5.40) Hemoglobin 13.4 g/dL (12.0-15.5) Hematocrit 39.6 % (36.0-47.0) Mean Corpuscular Volume 86 fL (79-100) Mean Corpuscular Hemoglobin 29 pg (25-35) Mean Corpuscular Hemoglobin Concent 34 g/dL (31-37) Red Cell Distribution Width 15.7 % (11.5-14.5) Platelet Count 341 x10^3/uL (140-400) Neutrophils (%) (Auto) 76 % (31-73) Lymphocytes (%) (Auto) 16 % (24-48) Monocytes (%) (Auto) 7 % (0-9) Eosinophils (%) (Auto) 1 % (0-3) Basophils (%) (Auto) 1 % (0-3) Neutrophils # (Auto) 8.9 x10^3/uL (1.8-7.7) Lymphocytes # (Auto) 1.9 x10^3/uL (1.0-4.8) Monocytes # (Auto) 0.8 x10^3/uL (0.0-1.1) Eosinophils # (Auto) 0.1 x10^3/uL (0.0-0.7) Basophils # (Auto) 0.1 x10^3/uL (0.0-0.2) Erythrocyte Sedimentation Rate 34 (0-25) Sodium Level 140 mmol/L (136-145) Potassium Level 3.7 mmol/L (3.5-5.1) Chloride Level 102 mmol/L (98-107) Carbon Dioxide Level 24 mmol/L (21-32) Anion Gap 14 (6-14) Blood Urea Nitrogen 11 mg/dL (7-20) Creatinine 0.6 mg/dL (0.6-1.0) Estimated GFR (Cockcroft-Gault) 109.6 BUN/Creatinine Ratio 18 (6-20) Glucose Level 156 mg/dL (70-99) Calcium Level 9.5 mg/dL (8.5-10.1) Phosphorus Level 2.5 mg/dL (2.6-4.7) Magnesium Level 1.8 mg/dL (1.8-2.4) Total Bilirubin 0.4 mg/dL (0.2-1.0) Aspartate Amino Transf (AST/SGOT) 22 U/L (15-37) Alanine Aminotransferase (ALT/SGPT) 37 U/L (14-59) Alkaline Phosphatase 107 U/L (46-116) Creatine Kinase 63 U/L (26-192) Creatine Kinase MB (Mass) 0.7 ng/mL (0.0-3.6) Creatine Kinase MB Relative Index % (0-4) C-Reactive Protein, Quantitative 20.5 mg/L (0-3.3) Total Protein 7.6 g/dL (6.4-8.2) Albumin 3.6 g/dL (3.4-5.0) Albumin/Globulin Ratio 0.9 (1.0-1.7) Lipase 87 U/L (73-393) Laboratory Tests Test 01/09/21 14:13 01/09/21 14:20 Urine Collection Type Unknown Urine Color Yellow Urine Clarity Clear Urine pH 5.5 (<5.0-8.0) Urine Specific [place] 1.010 (1.000-1.030) Urine Protein Negative mg/dL (NEG-TRACE) Urine Glucose (UA) Negative mg/dL (NEG) Urine Ketones (Stick) Negative mg/dL (NEG) Urine Blood Negative (NEG) Urine Nitrite Negative (NEG) Urine Bilirubin Negative (NEG) Urine Urobilinogen Dipstick 0.2 mg/dL (0.2 mg/dL) Urine Leukocyte Esterase Negative (NEG) Urine RBC 0 /HPF (0-2) Urine WBC 0 /HPF (0-4) Urine Squamous Epithelial Cells Few /LPF Urine Bacteria 0 /HPF (0-FEW) Urine Mucus Slight /LPF Urine Test Negative (NEG) White Blood Count 11.8 x10^3/uL (4.0-11.0) Red Blood Count 4.59 x10^6/uL (3.50-5.40) Hemoglobin 13.4 g/dL (12.0-15.5) Hematocrit 39.6 % (36.0-47.0) Mean Corpuscular Volume 86 fL (79-100) Mean Corpuscular Hemoglobin 29 pg (25-35) Mean Corpuscular Hemoglobin Concent 34 g/dL (31-37) Red Cell Distribution Width 15.7 % (11.5-14.5) Platelet Count 341 x10^3/uL (140-400) Neutrophils (%) (Auto) 76 % (31-73) Lymphocytes (%) (Auto) 16 % (24-48) Monocytes (%) (Auto) 7 % (0-9) Eosinophils (%) (Auto) 1 % (0-3) Basophils (%) (Auto) 1 % (0-3) Neutrophils # (Auto) 8.9 x10^3/uL (1.8-7.7) Lymphocytes # (Auto) 1.9 x10^3/uL (1.0-4.8) Monocytes # (Auto) 0.8 x10^3/uL (0.0-1.1) Eosinophils # (Auto) 0.1 x10^3/uL (0.0-0.7) Basophils # (Auto) 0.1 x10^3/uL (0.0-0.2) Erythrocyte Sedimentation Rate 34 (0-25) Sodium Level 140 mmol/L (136-145) Potassium Level 3.7 mmol/L (3.5-5.1) Chloride Level 102 mmol/L (98-107) Carbon Dioxide Level 24 mmol/L (21-32) Anion Gap 14 (6-14) Blood Urea Nitrogen 11 mg/dL (7-20) Creatinine 0.6 mg/dL (0.6-1.0) Estimated GFR (Cockcroft-Gault) 109.6 BUN/Creatinine Ratio 18 (6-20) Glucose Level 156 mg/dL (70-99) Calcium Level 9.5 mg/dL (8.5-10.1) Phosphorus Level 2.5 mg/dL (2.6-4.7) Magnesium Level 1.8 mg/dL (1.8-2.4) Total Bilirubin 0.4 mg/dL (0.2-1.0) Aspartate Amino Transf (AST/SGOT) 22 U/L (15-37) Alanine Aminotransferase (ALT/SGPT) 37 U/L (14-59) Alkaline Phosphatase 107 U/L (46-116) Creatine Kinase 63 U/L (26-192) Creatine Kinase MB (Mass) 0.7 ng/mL (0.0-3.6) Creatine Kinase MB Relative Index % (0-4) C-Reactive Protein, Quantitative 20.5 mg/L (0-3.3) Total Protein 7.6 g/dL (6.4-8.2) Albumin 3.6 g/dL (3.4-5.0) Albumin/Globulin Ratio 0.9 (1.0-1.7) Lipase 87 U/L (73-393) Images Images PATIENT: CORNELIA SILVESTRE CACCOUNT: [id number] : 1980 LOCATION: ER AGE: 40 SEX: F EXAM STATUS: REG ER ORD. PHYSICIAN: TOMY PRECIADO APRN REASON: Supraumbilical pain near hernia site PROCEDURE: CT ABD PELV W/ IV CONTRST ONLY Exam: CT of abdomen and pelvis with contrast INDICATION: Supraumbilical pain, near hernia site TECHNIQUE: Sequential axial images through the abdomen and pelvis obtained following the administration of 75 mL of Omni 300 IV contrast. Sagittal and coronal reformatted images were reconstructed from the axial data and reviewed. Exposure: One or more of the following in the visualized dose reduction techniques were utilized for this examination: 1. Automated exposure control 2. Adjustment of the MA and/or KV according to patient size 3. Use of iterative of reconstructive technique Comparisons: 12/26/2020 FINDINGS: Heart size is normal. No pericardial effusion. Strandy bibasilar airspace disease. No pleural effusion. Liver, spleen, pancreas, gallbladder and adrenals are unremarkable. No perinephric inflammation or hydronephrosis. No renal or ureteral calculi are identified. Bladder is partially distended and not well evaluated. Uterus is not enlarged. There is a umbilical hernia which contains a short segment of small bowel. The herniated bowel is mildly dilated. Otherwise, Large and small bowel are unremarkable. Appendix is nonidentified. No free abdominal air or fluid. No obstruction. Abdominal aorta has normal course and caliber. Abdominal vasculature is patent. No enlarged abdominal lymph nodes are identified. No suspicious osseous lesions or acute fractures. IMPRESSION: Umbilical hernia which contains a short segment of small bowel which is mildly dilated. The more proximal small bowel is also mildly dilated suggesting early or partial obstruction. VTE Prophylaxis Ordered VTE Prophylaxis Devices: No VTE Pharmacological Prophylaxi: Yes Assessment/Plan Assessment/Plan Partial SBO Umbilical hernia Hypertensive urgency DM2 Plan: Place NG tube to low intermittent suction Initiate continuous IV fluids Consultation to general surgery IV hydralazine as needed Resume what other medications at This time FEN - NPO PPX - Heparin FULL CODE Dispo - inpatient for above Patient names her (Jorge L Artis) as surrogate decision-maker Justifications for Admission Other Justification KIRA RIOJAS MD Jan 09, 2021 17:09
[2021-01-09] MEDS ORDERED: HYDROmorphone 2 MG/ML VIAL IVP PRN (17:15)
[2021-01-09] MEDS ORDERED: ACETAMINOPHEN 325 MG TABLET. PO PRN (17:30)
[2021-01-09] MEDS ORDERED: CALCIUM CARBONATE 500 MG TAB.CHEW PO PRN (17:30)
[2021-01-09] MEDS ORDERED: MAG HYDROX/ALUMINUM HYD/SIMETH 30 ML ORAL.SUSP PO PRN (17:30)
[2021-01-09] MEDS ORDERED: DEXTROSE 50% 25 GM / 50ML DISP.SYRIN. IV PRN (17:30)
[2021-01-09] MEDS ORDERED: MAGNESIUM HYDROXIDE 2,400 MG/30 ML ORAL.SUSP. PO PRN (17:30)
[2021-01-09 19:20] VITALS: BP 161/97
--- NOTE | 2021-01-09 19:35 | PDOC2 ---
CONSULT Date of Consult Date of Consult DATE: 01/09/21 TIME: 19:30 Reason for Consult Reason for Consult: Incarcerated umbilical hernia Referring Physician Referring Physician: Dr. Taylor Identification/Chief Complaint Chief Complaint umbilical pain Source Source: Chart review, Patient History of Present Illness Reason for Visit: 40 yo F with known umbilical hernia. Developed pain and nausea earlier and seen by ER. Pt now seen in hospital room. She reports feeling better, hernia reduced and pain resolved. Main c/o is OCHOA. Past Medical History Cardiovascular: HTN Endocrine: Diabetes Past Surgical History Past Surgical History: Other (tubal ligation), No pertinent history Family History Family History: Diabetes, Hypertension Social History No ALCOHOL: occassional Drugs: None Current Problem List Problem List Problems Medical Problems: (1) Abdominal pain Status: Acute (2) Small bowel obstruction Status: Acute (3) Umbilical hernia Status: Acute Current Medications Current Medications Current Medications Ondansetron HCl (Zofran) 4 mg STK-MED ONCE .ROUTE ; Start 01/09/21 at 14:27; Stop 01/09/21 at 14:28; Status DC Fentanyl Citrate (Fentanyl 2ml Vial) 100 mcg STK-MED ONCE .ROUTE ; Start 01/09/21 at 14:27; Stop 01/09/21 at 14:28; Status DC Ondansetron HCl (Zofran) 4 mg 1X ONCE IVP Last administered on 01/09/21at 14:30; Start 01/09/21 at 14:30; Stop 01/09/21 at 14:31; Status DC Sodium Chloride 1,000 ml @ 1,000 mls/hr 1X ONCE IV Last administered on 01/09/21at 14:29; Start 01/09/21 at 14:30; Stop 01/09/21 at 15:29; Status DC Fentanyl Citrate (Fentanyl 2ml Vial) 100 mcg 1X ONCE IVP Last administered on 01/09/21at 14:30; Start 01/09/21 at 14:30; Stop 01/09/21 at 14:31; Status DC Hydromorphone HCl (Dilaudid) 1 mg 1X ONCE IVP Last administered on 01/09/21at 15:07; Start 01/09/21 at 15:00; Stop 01/09/21 at 15:01; Status DC Iohexol (Omnipaque 300 Mg/ml) 75 ml 1X ONCE IV Last administered on 01/09/21at 15:12; Start 01/09/21 at 15:15; Stop 01/09/21 at 15:16; Status DC Info (CONTRAST GIVEN -- Rx MONITORING) 1 each PRN DAILY PRN MC SEE COMMENTS; Start 01/09/21 at 15:15; Stop 01/11/21 at 15:14 Sodium Chloride 1,000 ml @ 125 mls/hr 1X ONCE IV ; Start 01/09/21 at 16:45; Stop 01/10/21 at 00:44 Ondansetron HCl (Zofran) 4 mg PRN Q8HRS PRN IVP NAUSEA/VOMITING; Start 01/09/21 at 16:45; Stop 01/10/21 at 16:44 Morphine Sulfate (Morphine Sulfate) 4 mg PRN Q2HR PRN IVP PAIN; Start 01/09/21 at 16:45; Stop 01/10/21 at 16:44 Hydromorphone HCl (Dilaudid) 1 mg 1X ONCE IVP Last administered on 01/09/21at 17:22; Start 01/09/21 at 17:00; Stop 01/09/21 at 17:01; Status DC Hydralazine HCl (Apresoline Inj) 10 mg PRN Q4HRS PRN IVP HYPERTENSION; Start 01/09/21 at 17:00 Hydromorphone HCl (Dilaudid) 1 mg PRN Q4HRS PRN IVP SEVERE PAIN 7-10; Start 01/09/21 at 17:15 Glipizide (Glucotrol) 2.5 mg BID PO ; Start 01/09/21 at 21:00 Metoprolol Succinate (Toprol Xl) 25 mg DAILY PO ; Start 01/10/21 at 09:00 Insulin Glargine (Lantus Syringe) 15 unit QHS SQ ; Start 01/09/21 at 21:00 Insulin Human Lispro (HumaLOG) 0-9 UNITS TIDWMEALS SQ ; Start 01/10/21 at 08:00 Dextrose (Dextrose 50%-Water Syringe) 12.5 gm PRN Q15MIN PRN IV SEE COMMENTS; Start 01/09/21 at 17:30 Ondansetron HCl (Zofran) 4 mg PRN Q6HRS PRN IVP NAUSEA/VOMITING; Start 01/09/21 at 17:30 Al Hydroxide/Mg Hydroxide (Mylanta Plus Xs) 30 ml PRN Q3HRS PRN PO HEARTBURN / GAS; Start 01/09/21 at 17:30 Calcium Carbonate/ Glycine (Tums) 500 mg PRN Q3HRS PRN PO UPSET STOMACH; Start 01/09/21 at 17:30 Acetaminophen (Tylenol) 650 mg PRN Q6HRS PRN PO Headaches, Temp > 101.5F; Start 01/09/21 at 17:30 Magnesium Hydroxide (Milk Of Magnesia) 2,400 mg PRN Q12HR PRN PO CONSTIPATION; Start 01/09/21 at 17:30 Heparin Sodium (Porcine) (Heparin Sodium) 5,000 unit Q8HRS SQ ; Start 01/09/21 at 22:00 Lorazepam (Ativan Inj) 2 mg PRN Q6HRS PRN IVP ANXIETY / AGITATION; Start 01/09/21 at 17:30 Active Scripts Active Glipizide 5 Mg Tablet 2.5 Gm PO BID 30 Days Lantus (Insulin Glargine,Hum.rec.anlog) 100 Unit/1 Ml Vial 15 Unit SQ QHS 30 Days Hydrochlorothiazide Tablet (Hydrochlorothiazide) 25 Mg Tablet 25 Mg PO DAILY Metoprolol Succinate ( Xl ) (Metoprolol Succinate) 25 Mg Tab.er.24h 25 Mg PO DAILY Metformin Hcl 1,000 Mg Tablet 1,000 Mg PO BIDWMEALS Tessalon Perle (Benzonatate) 100 Mg Capsule 1 Cap PO TID PRN Prednisone (Prednisone) 10 Mg Tablet 10 Mg PO UD Take 4 tablets by mouth daily for 3 days, then take 3 tablets by mouth daily for 2 days, then take 2 tablets by mouth daily for 2 days, then take 1 tablets by mouth daily for 2 days, then stop. Codeine-Guaifen 10-100 mg/5 ml (Guaifenesin/Codeine Phosphate) 120 Ml Liquid 5 Ml PO PRN Q6HRS PRN MDD 20 Milliliter(s) 6 Days Ondansetron Odt (Ondansetron) 4 Mg Tab.rapdis 1 Tab PO PRN Q6-8HRS Potassium Chloride (Potassium Chloride) 10 Meq Capsule.er 10 Meq PO DAILY 5 Days Proair Respiclick (Albuterol Sulfate) 90 Mcg Aer.pow.ba 1 Puff IH PRN Q6HRS PRN Reported Vitamin D3 (Vitamin D) 25 Mcg Tablet 25 Mcg PO DAILY 1,000 UNITS = 25 MCG Allergies Allergies: Coded Allergies: No Known Drug Allergies (Unverified , 01/09/21) ROS HEENT: YES: Heacaches Gastrointestinal: Yes Nausea, Yes Abdominal Pain Physical Exam General: Alert, Oriented X3, Cooperative, No acute distress HEENT: Atraumatic Lungs: Normal air movement Abdomen: Soft, No tenderness, Other (obese, hernia appears reduced, difficult to palpate fascial defect, but no mass c/w CT visualized hernia present) Vitals VITALS Vital Signs Date Time Temp Pulse Resp B/P (MAP) Pulse Ox O2 Delivery O2 Flow Rate FiO2 01/09/21 19:05 98 159/93 (115) 97 01/09/21 14:30 16 Room Air 01/09/21 13:58 98.0 98.0 Labs Labs Laboratory Tests Test 01/09/21 14:13 01/09/21 14:20 Urine Collection Type Unknown Urine Color Yellow Urine Clarity Clear Urine pH 5.5 (<5.0-8.0) Urine Specific [place] 1.010 (1.000-1.030) Urine Protein Negative mg/dL (NEG-TRACE) Urine Glucose (UA) Negative mg/dL (NEG) Urine Ketones (Stick) Negative mg/dL (NEG) Urine Blood Negative (NEG) Urine Nitrite Negative (NEG) Urine Bilirubin Negative (NEG) Urine Urobilinogen Dipstick 0.2 mg/dL (0.2 mg/dL) Urine Leukocyte Esterase Negative (NEG) Urine RBC 0 /HPF (0-2) Urine WBC 0 /HPF (0-4) Urine Squamous Epithelial Cells Few /LPF Urine Bacteria 0 /HPF (0-FEW) Urine Mucus Slight /LPF Urine Test Negative (NEG) White Blood Count 11.8 x10^3/uL (4.0-11.0) Red Blood Count 4.59 x10^6/uL (3.50-5.40) Hemoglobin 13.4 g/dL (12.0-15.5) Hematocrit 39.6 % (36.0-47.0) Mean Corpuscular Volume 86 fL (79-100) Mean Corpuscular Hemoglobin 29 pg (25-35) Mean Corpuscular Hemoglobin Concent 34 g/dL (31-37) Red Cell Distribution Width 15.7 % (11.5-14.5) Platelet Count 341 x10^3/uL (140-400) Neutrophils (%) (Auto) 76 % (31-73) Lymphocytes (%) (Auto) 16 % (24-48) Monocytes (%) (Auto) 7 % (0-9) Eosinophils (%) (Auto) 1 % (0-3) Basophils (%) (Auto) 1 % (0-3) Neutrophils # (Auto) 8.9 x10^3/uL (1.8-7.7) Lymphocytes # (Auto) 1.9 x10^3/uL (1.0-4.8) Monocytes # (Auto) 0.8 x10^3/uL (0.0-1.1) Eosinophils # (Auto) 0.1 x10^3/uL (0.0-0.7) Basophils # (Auto) 0.1 x10^3/uL (0.0-0.2) Erythrocyte Sedimentation Rate 34 (0-25) Sodium Level 140 mmol/L (136-145) Potassium Level 3.7 mmol/L (3.5-5.1) Chloride Level 102 mmol/L (98-107) Carbon Dioxide Level 24 mmol/L (21-32) Anion Gap 14 (6-14) Blood Urea Nitrogen 11 mg/dL (7-20) Creatinine 0.6 mg/dL (0.6-1.0) Estimated GFR (Cockcroft-Gault) 109.6 BUN/Creatinine Ratio 18 (6-20) Glucose Level 156 mg/dL (70-99) Calcium Level 9.5 mg/dL (8.5-10.1) Phosphorus Level 2.5 mg/dL (2.6-4.7) Magnesium Level 1.8 mg/dL (1.8-2.4) Total Bilirubin 0.4 mg/dL (0.2-1.0) Aspartate Amino Transf (AST/SGOT) 22 U/L (15-37) Alanine Aminotransferase (ALT/SGPT) 37 U/L (14-59) Alkaline Phosphatase 107 U/L (46-116) Creatine Kinase 63 U/L (26-192) Creatine Kinase MB (Mass) 0.7 ng/mL (0.0-3.6) Creatine Kinase MB Relative Index % (0-4) C-Reactive Protein, Quantitative 20.5 mg/L (0-3.3) Total Protein 7.6 g/dL (6.4-8.2) Albumin 3.6 g/dL (3.4-5.0) Albumin/Globulin Ratio 0.9 (1.0-1.7) Lipase 87 U/L (73-393) Laboratory Tests Test 01/09/21 14:13 01/09/21 14:20 Urine Collection Type Unknown Urine Color Yellow Urine Clarity Clear Urine pH 5.5 (<5.0-8.0) Urine Specific [place] 1.010 (1.000-1.030) Urine Protein Negative mg/dL (NEG-TRACE) Urine Glucose (UA) Negative mg/dL (NEG) Urine Ketones (Stick) Negative mg/dL (NEG) Urine Blood Negative (NEG) Urine Nitrite Negative (NEG) Urine Bilirubin Negative (NEG) Urine Urobilinogen Dipstick 0.2 mg/dL (0.2 mg/dL) Urine Leukocyte Esterase Negative (NEG) Urine RBC 0 /HPF (0-2) Urine WBC 0 /HPF (0-4) Urine Squamous Epithelial Cells Few /LPF Urine Bacteria 0 /HPF (0-FEW) Urine Mucus Slight /LPF Urine Test Negative (NEG) White Blood Count 11.8 x10^3/uL (4.0-11.0) Red Blood Count 4.59 x10^6/uL (3.50-5.40) Hemoglobin 13.4 g/dL (12.0-15.5) Hematocrit 39.6 % (36.0-47.0) Mean Corpuscular Volume 86 fL (79-100) Mean Corpuscular Hemoglobin 29 pg (25-35) Mean Corpuscular Hemoglobin Concent 34 g/dL (31-37) Red Cell Distribution Width 15.7 % (11.5-14.5) Platelet Count 341 x10^3/uL (140-400) Neutrophils (%) (Auto) 76 % (31-73) Lymphocytes (%) (Auto) 16 % (24-48) Monocytes (%) (Auto) 7 % (0-9) Eosinophils (%) (Auto) 1 % (0-3) Basophils (%) (Auto) 1 % (0-3) Neutrophils # (Auto) 8.9 x10^3/uL (1.8-7.7) Lymphocytes # (Auto) 1.9 x10^3/uL (1.0-4.8) Monocytes # (Auto) 0.8 x10^3/uL (0.0-1.1) Eosinophils # (Auto) 0.1 x10^3/uL (0.0-0.7) Basophils # (Auto) 0.1 x10^3/uL (0.0-0.2) Erythrocyte Sedimentation Rate 34 (0-25) Sodium Level 140 mmol/L (136-145) Potassium Level 3.7 mmol/L (3.5-5.1) Chloride Level 102 mmol/L (98-107) Carbon Dioxide Level 24 mmol/L (21-32) Anion Gap 14 (6-14) Blood Urea Nitrogen 11 mg/dL (7-20) Creatinine 0.6 mg/dL (0.6-1.0) Estimated GFR (Cockcroft-Gault) 109.6 BUN/Creatinine Ratio 18 (6-20) Glucose Level 156 mg/dL (70-99) Calcium Level 9.5 mg/dL (8.5-10.1) Phosphorus Level 2.5 mg/dL (2.6-4.7) Magnesium Level 1.8 mg/dL (1.8-2.4) Total Bilirubin 0.4 mg/dL (0.2-1.0) Aspartate Amino Transf (AST/SGOT) 22 U/L (15-37) Alanine Aminotransferase (ALT/SGPT) 37 U/L (14-59) Alkaline Phosphatase 107 U/L (46-116) Creatine Kinase 63 U/L (26-192) Creatine Kinase MB (Mass) 0.7 ng/mL (0.0-3.6) Creatine Kinase MB Relative Index % (0-4) C-Reactive Protein, Quantitative 20.5 mg/L (0-3.3) Total Protein 7.6 g/dL (6.4-8.2) Albumin 3.6 g/dL (3.4-5.0) Albumin/Globulin Ratio 0.9 (1.0-1.7) Lipase 87 U/L (73-393) Images Images CT with umbilical hernia with bowel obstruction Assessment/Plan Assessment/Plan incarcerated umbilical hernia, now reduced agree with hospital observation if stable in AM, OK to d/c and recommend elective hernia repair Thanks for consult! FRANKY CADENA MD Jan 09, 2021 19:35
--- NOTE | 2021-01-09 19:50 | NUR ---
Admitted from ED, Plan of Care discussed with patient and verbalized understanding. Will continue to monitor.
[2021-01-09] MEDS: INSULIN GLARGINE SYRINGE. SQ SCH (21:00)
[2021-01-09] MEDS: glipiZIDE 5 MG TABLET PO SCH (21:00)
[2021-01-09] MEDS: HEPARIN for SUB-Q USE 5,000 UNIT/ML VIAL. SQ SCH (22:19)
[2021-01-09 23:23] VITALS: BP 140/87
[2021-01-10 02:54] VITALS: BP 148/86
[2021-01-10] MEDS: HEPARIN for SUB-Q USE 5,000 UNIT/ML VIAL. SQ SCH ×3 (05:50→21:55)
[2021-01-10 07:00] VITALS: BP 123/76
[2021-01-10] MEDS: INSULIN LISPRO 300 UNITS/3 ML VIAL. SQ SCH ×3 (08:00→18:11)
[2021-01-10] MEDS: glipiZIDE 5 MG TABLET PO SCH ×2 (09:00→21:51)
--- NOTE | 2021-01-10 10:13 | NUR ---
SW following. Discussed with RN, pt from home, room air, NPO. Some discussion about pt returning for outpatient surgery. RN advised no SW needs at this time. Possible discharge home today. SW will continue to follow.
[2021-01-10 11:00] VITALS: BP 148/85
--- NOTE | 2021-01-10 11:06 | PDOC ---
[facility] PROGRESS NOTE Date of Service DOS: DATE: 01/10/21 TIME: 10:52 Chief Complaint Chief Complaint A/P: Partial SBO Umbilical hernia Hypertensive urgency DM2 Abdominal pain Plan: Consultation to general surgery IV hydralazine as needed Resume what other medications at This time FEN - NPO PPX - Heparin FULL CODE Dispo - inpatient for above Patient names her (Jorge L Artis) as surrogate decision-maker History of Present Illness History of Present Illness Patient is a 40-year-old female with past medical history DM2, HTN, umbilical hernia, who presents to the ED with complaints of abdominal pain since yesterday. Abdominal pain is worse with movement. She reports associated nausea, vomiting, abdominal distention. States last time she vomited was just recently in the ED. Labs on admission showed WBC 11.8, CBG 156. CT abdomen/pelvis showed umbilical hernia which contains a short segment of small bowel which is mildly dilated; the more proximal small bowel is mildly dilated suggesting early or partial obstruction. He was treated with IV Dilaudid with improvement in her pain. Will admit patient for further medical management. Hernia was reduced yesterday evening by general surgery. Patient does note when she lays down it easily reduces but when she sits or stands up rolls it comes back out and causes her pain. No CP or SOB. BP better controlled. She feels irritable bowel movement and is asking for food this morning she is also asking if she can have the surgery corrected. Advised that if the hernia is reducible and elective surgery would be preferable. She wants to further discuss. Advised abdominal binder for now when sitting or standing. Vitals/I&O Vitals/I&O: Vital Signs Date Time Temp Pulse Resp B/P (MAP) Pulse Ox O2 Delivery O2 Flow Rate FiO2 01/10/21 10:16 Room Air 01/10/21 07:00 98.0 95 18 123/76 (92) 95 98.0 I & O 01/09/21 01/09/21 01/10/21 15:00 23:00 07:00 Intake Total 0 ml 0 ml Balance 0 ml 0 ml Physical Exam General: Alert, Oriented X3, Cooperative, No acute distress Abdomen: Soft, No tenderness, Other (obese, hernia appears reduced, difficult to palpate fascial defect, but no mass c/w CT visualized hernia present) Labs Labs: Laboratory Tests Test 01/09/21 14:13 01/09/21 14:20 01/09/21 21:14 01/10/21 08:22 Urine Collection Type Unknown Urine Color Yellow Urine Clarity Clear Urine pH 5.5 (<5.0-8.0) Urine Specific [place] 1.010 (1.000-1.030) Urine Protein Negative mg/dL (NEG-TRACE) Urine Glucose (UA) Negative mg/dL (NEG) Urine Ketones (Stick) Negative mg/dL (NEG) Urine Blood Negative (NEG) Urine Nitrite Negative (NEG) Urine Bilirubin Negative (NEG) Urine Urobilinogen Dipstick 0.2 mg/dL (0.2 mg/dL) Urine Leukocyte Esterase Negative (NEG) Urine RBC 0 /HPF (0-2) Urine WBC 0 /HPF (0-4) Urine Squamous Epithelial Cells Few /LPF Urine Bacteria 0 /HPF (0-FEW) Urine Mucus Slight /LPF Urine Test Negative (NEG) White Blood Count 11.8 x10^3/uL (4.0-11.0) Red Blood Count 4.59 x10^6/uL (3.50-5.40) Hemoglobin 13.4 g/dL (12.0-15.5) Hematocrit 39.6 % (36.0-47.0) Mean Corpuscular Volume 86 fL (79-100) Mean Corpuscular Hemoglobin 29 pg (25-35) Mean Corpuscular Hemoglobin Concent 34 g/dL (31-37) Red Cell Distribution Width 15.7 % (11.5-14.5) Platelet Count 341 x10^3/uL (140-400) Neutrophils (%) (Auto) 76 % (31-73) Lymphocytes (%) (Auto) 16 % (24-48) Monocytes (%) (Auto) 7 % (0-9) Eosinophils (%) (Auto) 1 % (0-3) Basophils (%) (Auto) 1 % (0-3) Neutrophils # (Auto) 8.9 x10^3/uL (1.8-7.7) Lymphocytes # (Auto) 1.9 x10^3/uL (1.0-4.8) Monocytes # (Auto) 0.8 x10^3/uL (0.0-1.1) Eosinophils # (Auto) 0.1 x10^3/uL (0.0-0.7) Basophils # (Auto) 0.1 x10^3/uL (0.0-0.2) Erythrocyte Sedimentation Rate 34 (0-25) Sodium Level 140 mmol/L (136-145) Potassium Level 3.7 mmol/L (3.5-5.1) Chloride Level 102 mmol/L (98-107) Carbon Dioxide Level 24 mmol/L (21-32) Anion Gap 14 (6-14) Blood Urea Nitrogen 11 mg/dL (7-20) Creatinine 0.6 mg/dL (0.6-1.0) Estimated GFR (Cockcroft-Gault) 109.6 BUN/Creatinine Ratio 18 (6-20) Glucose Level 156 mg/dL (70-99) Calcium Level 9.5 mg/dL (8.5-10.1) Phosphorus Level 2.5 mg/dL (2.6-4.7) Magnesium Level 1.8 mg/dL (1.8-2.4) Total Bilirubin 0.4 mg/dL (0.2-1.0) Aspartate Amino Transf (AST/SGOT) 22 U/L (15-37) Alanine Aminotransferase (ALT/SGPT) 37 U/L (14-59) Alkaline Phosphatase 107 U/L (46-116) Creatine Kinase 63 U/L (26-192) Creatine Kinase MB (Mass) 0.7 ng/mL (0.0-3.6) Creatine Kinase MB Relative Index % (0-4) C-Reactive Protein, Quantitative 20.5 mg/L (0-3.3) Total Protein 7.6 g/dL (6.4-8.2) Albumin 3.6 g/dL (3.4-5.0) Albumin/Globulin Ratio 0.9 (1.0-1.7) Lipase 87 U/L (73-393) Glucose (Fingerstick) 118 mg/dL (70-99) 153 mg/dL (70-99) Assessment and Plan Assessmemt and Plan Problems Medical Problems: (1) Abdominal pain Status: Acute (2) Small bowel obstruction Status: Acute (3) Umbilical hernia Status: Acute Comment Review of Relevant I have reviewed the following items dorothea (where applicable) has been applied. Medications: Current Medications Medications (Trade) Dose Ordered Sig/Silke Route PRN Reason Start Time Stop Time Status Last Admin Dose Admin Ondansetron HCl (Zofran) 4 mg 1X ONCE IVP 01/09/21 14:30 01/09/21 14:31 DC 01/09/21 14:30 Sodium Chloride 1,000 ml @ 1,000 mls/hr 1X ONCE IV 01/09/21 14:30 01/09/21 15:29 DC 01/09/21 14:29 Fentanyl Citrate (Fentanyl 2ml Vial) 100 mcg 1X ONCE IVP 01/09/21 14:30 01/09/21 14:31 DC 01/09/21 14:30 Hydromorphone HCl (Dilaudid) 1 mg 1X ONCE IVP 01/09/21 15:00 01/09/21 15:01 DC 01/09/21 15:07 Iohexol (Omnipaque 300 Mg/ml) 75 ml 1X ONCE IV 01/09/21 15:15 01/09/21 15:16 DC 01/09/21 15:12 Sodium Chloride 1,000 ml @ 125 mls/hr 1X ONCE IV 01/09/21 16:45 01/10/21 00:44 DC 01/09/21 22:19 Morphine Sulfate (Morphine Sulfate) 4 mg PRN Q2HR PRN IVP PAIN 01/09/21 16:45 01/10/21 16:44 01/10/21 10:16 Hydromorphone HCl (Dilaudid) 1 mg 1X ONCE IVP 01/09/21 17:00 01/09/21 17:01 DC 01/09/21 17:22 Heparin Sodium (Porcine) (Heparin Sodium) 5,000 unit Q8HRS SQ 01/09/21 22:00 01/10/21 05:50 Lorazepam (Ativan Inj) 2 mg PRN Q6HRS PRN IVP ANXIETY / AGITATION 01/09/21 17:30 01/09/21 19:36 Justifications for Admission Other Justification VI PANIAGUA MD Jan 10, 2021 11:06
[2021-01-10] MEDS ORDERED: MAGNESIUM HYDROXIDE 2,400 MG/30 ML ORAL.SUSP. PO PRN (11:15)
[2021-01-10] MEDS ORDERED: MAGNESIUM HYDROXIDE 2,400 MG/30 ML ORAL.SUSP. PO ONE (11:15)
--- NOTE | 2021-01-10 14:12 | PDOC ---
SURGICAL PROGRESS NOTE DATE: 01/10/21 TIME: 14:10 Subjective Pt with main c/o OCHOA, mild umbilical pain with movement, no n/V Vital Signs Vital Signs Date Time Temp Pulse Resp B/P (MAP) Pulse Ox O2 Delivery O2 Flow Rate FiO2 01/10/21 11:00 97.8 85 18 148/85 (106) 96 Room Air 97.8 I&O Intake and Output 01/10/21 07:00 Intake Total 0 ml Balance 0 ml Intake Oral 0 ml # Voids 1 General: Alert, Oriented X3, Cooperative, mild distress Abdomen: Soft, Other (no obvious hernia, obesity) Labs Laboratory Tests Test 01/09/21 14:13 01/09/21 14:20 01/09/21 21:14 01/10/21 08:22 Urine Collection Type Unknown Urine Color Yellow Urine Clarity Clear Urine pH 5.5 (<5.0-8.0) Urine Specific [place] 1.010 (1.000-1.030) Urine Protein Negative mg/dL (NEG-TRACE) Urine Glucose (UA) Negative mg/dL (NEG) Urine Ketones (Stick) Negative mg/dL (NEG) Urine Blood Negative (NEG) Urine Nitrite Negative (NEG) Urine Bilirubin Negative (NEG) Urine Urobilinogen Dipstick 0.2 mg/dL (0.2 mg/dL) Urine Leukocyte Esterase Negative (NEG) Urine RBC 0 /HPF (0-2) Urine WBC 0 /HPF (0-4) Urine Squamous Epithelial Cells Few /LPF Urine Bacteria 0 /HPF (0-FEW) Urine Mucus Slight /LPF Urine Test Negative (NEG) White Blood Count 11.8 x10^3/uL (4.0-11.0) Red Blood Count 4.59 x10^6/uL (3.50-5.40) Hemoglobin 13.4 g/dL (12.0-15.5) Hematocrit 39.6 % (36.0-47.0) Mean Corpuscular Volume 86 fL (79-100) Mean Corpuscular Hemoglobin 29 pg (25-35) Mean Corpuscular Hemoglobin Concent 34 g/dL (31-37) Red Cell Distribution Width 15.7 % (11.5-14.5) Platelet Count 341 x10^3/uL (140-400) Neutrophils (%) (Auto) 76 % (31-73) Lymphocytes (%) (Auto) 16 % (24-48) Monocytes (%) (Auto) 7 % (0-9) Eosinophils (%) (Auto) 1 % (0-3) Basophils (%) (Auto) 1 % (0-3) Neutrophils # (Auto) 8.9 x10^3/uL (1.8-7.7) Lymphocytes # (Auto) 1.9 x10^3/uL (1.0-4.8) Monocytes # (Auto) 0.8 x10^3/uL (0.0-1.1) Eosinophils # (Auto) 0.1 x10^3/uL (0.0-0.7) Basophils # (Auto) 0.1 x10^3/uL (0.0-0.2) Erythrocyte Sedimentation Rate 34 (0-25) Sodium Level 140 mmol/L (136-145) Potassium Level 3.7 mmol/L (3.5-5.1) Chloride Level 102 mmol/L (98-107) Carbon Dioxide Level 24 mmol/L (21-32) Anion Gap 14 (6-14) Blood Urea Nitrogen 11 mg/dL (7-20) Creatinine 0.6 mg/dL (0.6-1.0) Estimated GFR (Cockcroft-Gault) 109.6 BUN/Creatinine Ratio 18 (6-20) Glucose Level 156 mg/dL (70-99) Calcium Level 9.5 mg/dL (8.5-10.1) Phosphorus Level 2.5 mg/dL (2.6-4.7) Magnesium Level 1.8 mg/dL (1.8-2.4) Total Bilirubin 0.4 mg/dL (0.2-1.0) Aspartate Amino Transf (AST/SGOT) 22 U/L (15-37) Alanine Aminotransferase (ALT/SGPT) 37 U/L (14-59) Alkaline Phosphatase 107 U/L (46-116) Creatine Kinase 63 U/L (26-192) Creatine Kinase MB (Mass) 0.7 ng/mL (0.0-3.6) Creatine Kinase MB Relative Index % (0-4) C-Reactive Protein, Quantitative 20.5 mg/L (0-3.3) Total Protein 7.6 g/dL (6.4-8.2) Albumin 3.6 g/dL (3.4-5.0) Albumin/Globulin Ratio 0.9 (1.0-1.7) Lipase 87 U/L (73-393) Glucose (Fingerstick) 118 mg/dL (70-99) 153 mg/dL (70-99) Test 01/10/21 11:53 Glucose (Fingerstick) 133 mg/dL (70-99) Laboratory Tests Test 01/09/21 14:13 01/09/21 14:20 01/09/21 21:14 01/10/21 08:22 Urine Collection Type Unknown Urine Color Yellow Urine Clarity Clear Urine pH 5.5 (<5.0-8.0) Urine Specific [place] 1.010 (1.000-1.030) Urine Protein Negative mg/dL (NEG-TRACE) Urine Glucose (UA) Negative mg/dL (NEG) Urine Ketones (Stick) Negative mg/dL (NEG) Urine Blood Negative (NEG) Urine Nitrite Negative (NEG) Urine Bilirubin Negative (NEG) Urine Urobilinogen Dipstick 0.2 mg/dL (0.2 mg/dL) Urine Leukocyte Esterase Negative (NEG) Urine RBC 0 /HPF (0-2) Urine WBC 0 /HPF (0-4) Urine Squamous Epithelial Cells Few /LPF Urine Bacteria 0 /HPF (0-FEW) Urine Mucus Slight /LPF Urine Test Negative (NEG) White Blood Count 11.8 x10^3/uL (4.0-11.0) Red Blood Count 4.59 x10^6/uL (3.50-5.40) Hemoglobin 13.4 g/dL (12.0-15.5) Hematocrit 39.6 % (36.0-47.0) Mean Corpuscular Volume 86 fL (79-100) Mean Corpuscular Hemoglobin 29 pg (25-35) Mean Corpuscular Hemoglobin Concent 34 g/dL (31-37) Red Cell Distribution Width 15.7 % (11.5-14.5) Platelet Count 341 x10^3/uL (140-400) Neutrophils (%) (Auto) 76 % (31-73) Lymphocytes (%) (Auto) 16 % (24-48) Monocytes (%) (Auto) 7 % (0-9) Eosinophils (%) (Auto) 1 % (0-3) Basophils (%) (Auto) 1 % (0-3) Neutrophils # (Auto) 8.9 x10^3/uL (1.8-7.7) Lymphocytes # (Auto) 1.9 x10^3/uL (1.0-4.8) Monocytes # (Auto) 0.8 x10^3/uL (0.0-1.1) Eosinophils # (Auto) 0.1 x10^3/uL (0.0-0.7) Basophils # (Auto) 0.1 x10^3/uL (0.0-0.2) Erythrocyte Sedimentation Rate 34 (0-25) Sodium Level 140 mmol/L (136-145) Potassium Level 3.7 mmol/L (3.5-5.1) Chloride Level 102 mmol/L (98-107) Carbon Dioxide Level 24 mmol/L (21-32) Anion Gap 14 (6-14) Blood Urea Nitrogen 11 mg/dL (7-20) Creatinine 0.6 mg/dL (0.6-1.0) Estimated GFR (Cockcroft-Gault) 109.6 BUN/Creatinine Ratio 18 (6-20) Glucose Level 156 mg/dL (70-99) Calcium Level 9.5 mg/dL (8.5-10.1) Phosphorus Level 2.5 mg/dL (2.6-4.7) Magnesium Level 1.8 mg/dL (1.8-2.4) Total Bilirubin 0.4 mg/dL (0.2-1.0) Aspartate Amino Transf (AST/SGOT) 22 U/L (15-37) Alanine Aminotransferase (ALT/SGPT) 37 U/L (14-59) Alkaline Phosphatase 107 U/L (46-116) Creatine Kinase 63 U/L (26-192) Creatine Kinase MB (Mass) 0.7 ng/mL (0.0-3.6) Creatine Kinase MB Relative Index % (0-4) C-Reactive Protein, Quantitative 20.5 mg/L (0-3.3) Total Protein 7.6 g/dL (6.4-8.2) Albumin 3.6 g/dL (3.4-5.0) Albumin/Globulin Ratio 0.9 (1.0-1.7) Lipase 87 U/L (73-393) Glucose (Fingerstick) 118 mg/dL (70-99) 153 mg/dL (70-99) Test 01/10/21 11:53 Glucose (Fingerstick) 133 mg/dL (70-99) Problem List Problems Medical Problems: (1) Abdominal pain Status: Acute (2) Small bowel obstruction Status: Acute (3) Umbilical hernia Status: Acute Assessment/Plan will try diet encourage f/u in office for elective repair tylenol for OCHOA Justicifation of Admission Dx: Justifications for Admission: Justification of Admission Dx: Yes FRANKY CADENA MD Jan 10, 2021 14:12
[2021-01-10] MEDS ORDERED: ACETAMINOPHEN 325 MG TABLET. PO PRN (14:15)
[2021-01-10 15:00] VITALS: BP 146/86
[2021-01-10] MEDS: METOPROLOL SUCC 24HR ER 25 MG TAB.ER.24H. PO SCH (15:27)
[2021-01-10] MEDS: KETOROLAC 30 MG/ML VIAL. IVP PRN (18:07)
[2021-01-10 19:57] VITALS: BP 140/74
[2021-01-10] MEDS: INSULIN GLARGINE SYRINGE. SQ SCH (21:54)
[2021-01-10 23:52] VITALS: BP 128/74
[2021-01-11 03:19] VITALS: BP 128/61
[2021-01-11] MEDS: HEPARIN for SUB-Q USE 5,000 UNIT/ML VIAL. SQ SCH ×2 (06:13→14:00)
[2021-01-11] MEDS: KETOROLAC 30 MG/ML VIAL. IVP PRN ×2 (06:20→14:58)
[2021-01-11 07:14] VITALS: BP 130/71
[2021-01-11] MEDS: INSULIN LISPRO 300 UNITS/3 ML VIAL. SQ SCH ×2 (08:00→12:00)
[2021-01-11] MEDS: glipiZIDE 5 MG TABLET PO SCH (09:52)
[2021-01-11] MEDS: METOPROLOL SUCC 24HR ER 25 MG TAB.ER.24H. PO SCH (09:52)
[2021-01-11 10:50] VITALS: BP 150/89
--- NOTE | 2021-01-11 11:02 | PDOC ---
[facility] PROGRESS NOTE Date of Service DOS: DATE: 01/11/21 TIME: 11:02 Chief Complaint Chief Complaint A/P: Partial SBO Umbilical hernia Hypertensive urgency DM2 Abdominal pain Plan: Consultation to general surgery IV hydralazine as needed Resume what other medications at This time FEN - NPO PPX - Heparin FULL CODE Dispo - inpatient for above Patient names her (Jorge L Artis) as surrogate decision-maker History of Present Illness History of Present Illness Ms Goodman is a 40-year-old female with past medical history DM2, HTN, morbid obesity, umbilical hernia, who presents to the ED with complaints of abdominal pain since 01/07/2021. Abdominal pain is worse with movement. She reports associated nausea, vomiting, abdominal distention. States last time she vomited was just recently in the ED. Labs on admission showed WBC 11.8, CBG 156. CT abdomen/pelvis showed umbilical hernia which contains a short segment of small bowel which is mildly dilated; the more proximal small bowel is mildly dilated suggesting early or partial obstruction. Was treated with IV Dilaudid with improvement in her pain. Will admit patient for further medical management. She was treated for COVID 27 November 2020 and has recovered and received her Pfizer vaccine 2 days prior to admission. 01/10: Hernia was reduced yesterday evening by general surgery. Patient does note when she lays down it easily reduces but when she sits or stands up rolls it comes back out and causes her pain. No CP or SOB. BP better controlled. She feels irritable bowel movement and is asking for food this morning she is also asking if she can have the surgery corrected. Advised that if the hernia is reducible and elective surgery would be preferable. She wants to further discuss. Advised abdominal binder for now when sitting or standing. Tolerated p.o. well still some pain. Hernia easily reducible abdominal binder in place. Will have outpatient surgical follow-up needs a new primary care doctor and is asking for advice on weight loss. Given the [employer] fitness tracker noe and counseled on intermittent fasting and addition of Trulicity to her regimen. Given number and referral for the [facility] [place] if she so chooses as her best outcome surgically would be weight loss prior to any elective hernia repair. Vitals/I&O Vitals/I&O: Vital Signs Date Time Temp Pulse Resp B/P (MAP) Pulse Ox O2 Delivery O2 Flow Rate FiO2 01/11/21 10:50 98.5 76 16 150/89 (109) 93 Room Air 98.5 I & O 01/10/21 01/10/21 01/11/21 15:00 23:00 07:00 Intake Total 440 ml Balance 440 ml Physical Exam General: Alert, Oriented X3, Cooperative, mild distress Abdomen: Soft, Other (no obvious hernia, obesity) Labs Labs: Laboratory Tests Test 01/10/21 11:53 01/10/21 17:08 01/10/21 21:50 Glucose (Fingerstick) 133 mg/dL (70-99) 180 mg/dL (70-99) 148 mg/dL (70-99) Assessment and Plan Assessmemt and Plan Problems Medical Problems: (1) Abdominal pain Status: Acute (2) Small bowel obstruction Status: Acute (3) Umbilical hernia Status: Acute Comment Review of Relevant I have reviewed the following items dorothea (where applicable) has been applied. Medications: Current Medications Medications (Trade) Dose Ordered Sig/Silke Route PRN Reason Start Time Stop Time Status Last Admin Dose Admin Magnesium Hydroxide (Milk Of Magnesia) 2,400 mg 1X ONCE PO 01/10/21 11:15 01/10/21 11:16 DC 01/10/21 15:27 Ketorolac Tromethamine (Toradol 30mg Vial) 30 mg PRN Q6HRS PRN IVP INFLAMMATION 01/10/21 18:00 01/11/21 06:20 Justifications for Admission Other Justification VI PANIAGUA MD Jan 11, 2021 11:02
--- NOTE | 2021-01-11 14:18 | PDOC ---
FERNY RIVERA SAFETY PROFESSIONAL 01/11/21 1418: SURGICAL PROGRESS NOTE DATE: 01/11/21 TIME: 14:17 Subjective still having umbilical pain tolerating diet having stools wants to have surgery while here Vital Signs Vital Signs Date Time Temp Pulse Resp B/P (MAP) Pulse Ox O2 Delivery O2 Flow Rate FiO2 01/11/21 10:50 98.5 76 16 150/89 (109) 93 Room Air 98.5 I&O Intake and Output 01/11/21 07:00 Intake Total 440 ml Balance 440 ml Intake Oral 440 ml General: Alert, Oriented X3, Cooperative Abdomen: Soft, Other (hernia reduced) Labs Laboratory Tests Test 01/09/21 14:20 01/09/21 21:14 01/10/21 08:22 01/10/21 11:53 White Blood Count 11.8 x10^3/uL (4.0-11.0) Red Blood Count 4.59 x10^6/uL (3.50-5.40) Hemoglobin 13.4 g/dL (12.0-15.5) Hematocrit 39.6 % (36.0-47.0) Mean Corpuscular Volume 86 fL (79-100) Mean Corpuscular Hemoglobin 29 pg (25-35) Mean Corpuscular Hemoglobin Concent 34 g/dL (31-37) Red Cell Distribution Width 15.7 % (11.5-14.5) Platelet Count 341 x10^3/uL (140-400) Neutrophils (%) (Auto) 76 % (31-73) Lymphocytes (%) (Auto) 16 % (24-48) Monocytes (%) (Auto) 7 % (0-9) Eosinophils (%) (Auto) 1 % (0-3) Basophils (%) (Auto) 1 % (0-3) Neutrophils # (Auto) 8.9 x10^3/uL (1.8-7.7) Lymphocytes # (Auto) 1.9 x10^3/uL (1.0-4.8) Monocytes # (Auto) 0.8 x10^3/uL (0.0-1.1) Eosinophils # (Auto) 0.1 x10^3/uL (0.0-0.7) Basophils # (Auto) 0.1 x10^3/uL (0.0-0.2) Erythrocyte Sedimentation Rate 34 (0-25) Sodium Level 140 mmol/L (136-145) Potassium Level 3.7 mmol/L (3.5-5.1) Chloride Level 102 mmol/L (98-107) Carbon Dioxide Level 24 mmol/L (21-32) Anion Gap 14 (6-14) Blood Urea Nitrogen 11 mg/dL (7-20) Creatinine 0.6 mg/dL (0.6-1.0) Estimated GFR (Cockcroft-Gault) 109.6 BUN/Creatinine Ratio 18 (6-20) Glucose Level 156 mg/dL (70-99) Calcium Level 9.5 mg/dL (8.5-10.1) Phosphorus Level 2.5 mg/dL (2.6-4.7) Magnesium Level 1.8 mg/dL (1.8-2.4) Total Bilirubin 0.4 mg/dL (0.2-1.0) Aspartate Amino Transf (AST/SGOT) 22 U/L (15-37) Alanine Aminotransferase (ALT/SGPT) 37 U/L (14-59) Alkaline Phosphatase 107 U/L (46-116) Creatine Kinase 63 U/L (26-192) Creatine Kinase MB (Mass) 0.7 ng/mL (0.0-3.6) Creatine Kinase MB Relative Index % (0-4) C-Reactive Protein, Quantitative 20.5 mg/L (0-3.3) Total Protein 7.6 g/dL (6.4-8.2) Albumin 3.6 g/dL (3.4-5.0) Albumin/Globulin Ratio 0.9 (1.0-1.7) Lipase 87 U/L (73-393) Glucose (Fingerstick) 118 mg/dL (70-99) 153 mg/dL (70-99) 133 mg/dL (70-99) Test 01/10/21 17:08 01/10/21 21:50 01/11/21 12:34 Glucose (Fingerstick) 180 mg/dL (70-99) 148 mg/dL (70-99) 90 mg/dL (70-99) Laboratory Tests Test 01/10/21 17:08 01/10/21 21:50 01/11/21 12:34 Glucose (Fingerstick) 180 mg/dL (70-99) 148 mg/dL (70-99) 90 mg/dL (70-99) Problem List Problems Medical Problems: (1) Abdominal pain Status: Acute (2) Small bowel obstruction Status: Acute (3) Umbilical hernia Status: Acute Assessment/Plan stable, hernia reduced, not an emergent need to repair will review with Dr Chaves Justicifation of Admission Dx: Justifications for Admission: Justification of Admission Dx: Yes FRANKY CHAVES MD 01/11/21 1429: SURGICAL PROGRESS NOTE Assessment/Plan Pt seen and examined. Agree with Ms. Rivera's note Pt notes some pain at umbilicus with stooling, but tolerating diet and having stools abd soft, ND, obese, min TTP, no palpable hernia encouraged pt on decrease rate of recurrence if repaired electively OK to d/c home and f/u in office. FERNY RIVERA APRN Jan 11, 2021 14:18 FRANKY CHAVES MD Jan 11, 2021 14:29
[2021-01-11 15:02] VITALS: BP 149/88
[2021-01-11] MEDS ORDERED: DULA0.75 SQ (15:29)
[2021-01-11] MEDS ORDERED: TRAM50TA PO (15:29)
--- NOTE | 2021-01-11 15:48 | PDOC3 ---
Discharge Summary Visit Information Date of Admission: Jan 09, 2021 Date of Discharge: Jan 11, 2021 Admitting Diagnosis: Umbilical hernia with small bowel incarceration Final Diagnosis Problems Medical Problems: (1) Abdominal pain Status: Acute (2) Small bowel obstruction Status: Acute (3) Umbilical hernia Status: Acute Brief Hospital Course Allergies Allergies Coded Allergies Type Severity Reaction Last Updated Verified No Known Drug Allergies 01/09/21 No Vital Signs Vital Signs Date Time Temp Pulse Resp B/P (MAP) Pulse Ox O2 Delivery O2 Flow Rate FiO2 01/11/21 15:02 98.3 83 18 149/88 (108) 95 Room Air 98.3 Lab Results Laboratory Tests Test 01/09/21 21:14 01/10/21 08:22 01/10/21 11:53 01/10/21 17:08 Glucose (Fingerstick) 118 mg/dL (70-99) 153 mg/dL (70-99) 133 mg/dL (70-99) 180 mg/dL (70-99) Test 01/10/21 21:50 01/11/21 12:34 Glucose (Fingerstick) 148 mg/dL (70-99) 90 mg/dL (70-99) Laboratory Tests Test 01/10/21 17:08 01/10/21 21:50 01/11/21 12:34 Glucose (Fingerstick) 180 mg/dL (70-99) 148 mg/dL (70-99) 90 mg/dL (70-99) Brief Hospital Course Ms Goodman is a 40-year-old female with past medical history DM2, HTN, morbid obesity, umbilical hernia, who presents to the ED with complaints of abdominal pain since 01/07/2021. Abdominal pain is worse with movement. She reports associated nausea, vomiting, abdominal distention. States last time she vomited was just recently in the ED. Labs on admission showed WBC 11.8, CBG 156. CT abdomen/pelvis showed umbilical hernia which contains a short segment of small bowel which is mildly dilated; the more proximal small bowel is mildly dilated suggesting early or partial obstruction. Was treated with IV Dilaudid with improvement in her pain. Will admit patient for further medical management. She was treated for COVID 27 November 2020 and has recovered and received her Pfizer vaccine 2 days prior to admission. 01/10: Hernia was reduced yesterday evening by general surgery. Patient does note when she lays down it easily reduces but when she sits or stands up rolls it comes back out and causes her pain. No CP or SOB. BP better controlled. She feels irritable bowel movement and is asking for food this morning she is also asking if she can have the surgery corrected. Advised that if the hernia is reducible and elective surgery would be preferable. She wants to further discuss. Advised abdominal binder for now when sitting or standing. Tolerated p.o. well still some pain. Hernia easily reducible abdominal binder in place. Will have outpatient surgical follow-up needs a new primary care doctor and is asking for advice on weight loss. Given the [employer] tracker noe and counseled on intermittent fasting and addition of Trulicity to her regimen. Given number and referral for the bariatric center [facility] if she so chooses as her best outcome surgically would be weight loss prior to any elective hernia repair. Problem list: Partial SBO Umbilical hernia Hypertensive urgency DM2 Abdominal pain Consultation to general surgery Dr Chaves [address] [place] [address] Wear abdominal binder Primary Care - Dr. Shelly Hilton [address] [id number] [facility] - Download [employer] application for your phone. Intermittent fasting. Greater than 30 minutes spent on d/c home with self care Discharge Information Condition at Discharge: Improved Follow Up: Weeks (1) Disposition/Orders: D/C to Home Scheduled Cholecalciferol (Vitamin D3) (Vitamin D3 ) 25 Mcg Tablet, 25 MCG PO DAILY for SUPPLEMENT, (Reported) 1,000 UNITS = 25 MCG Entered as Reported by: MOMO ALEMAN on 12/01/20 0628 Last Action: Reviewed on 01/09/21 9442 by KATT BLANKENSHIP Dulaglutide (Trulicity) 0.75 Mg/0.5 Ml Pen.injctr, 0.75 MG SQ WEEKLY for Diabetes type 2 for 90 Days, #12 Ref 3 Prescribed by: VI PANIAGUA MD on 01/11/21 1529 Glipizide (Glipizide) 5 Mg Tablet, 2.5 GM PO BID for diabetes for 30 Days, #60 Ref 3 Prescribed by: AVERY ESTRADA MD on 12/26/20 0423 Last Action: Continued on 01/09/211716 by KIRA RIOJAS MD Hydrochlorothiazide (Hydrochlorothiazide Tablet ) 25 Mg Tablet, 25 MG PO DAILY for DIURETIC, #30 Ref 0 Prescribed by: FAN SRIVASTAVA on 12/04/201656 Last Action: Reviewed on 01/09/212251 by KATT BLANKENSHIP Metformin Hcl (Metformin Hcl) 1,000 Mg Tablet, 1,000 MG PO BIDWMEALS for DM, #60 Ref 1 Prescribed by: FAN SRIVASTAVA on 12/04/201656 Metoprolol Succinate (Metoprolol Succinate ( Xl )) 25 Mg Tab.er.24h, 25 MG PO DAILY for FOR HYPERTENSION, #30 Ref 0 Prescribed by: FAN SRIVASTAVA on 12/04/201656 Last Action: Continued on 01/09/211716 by KIRA RIOJAS MD Ondansetron (Ondansetron Odt) 4 Mg Tab.rapdis, 1 TAB PO PRN Q6-8HRS, #16 Prescribed by: Juanita Nguyen APRN on 07/03/19 1229 Potassium Chloride (Potassium Chloride ) 10 Meq Capsule.er, 10 MEQ PO DAILY for 5 Days, #5 Prescribed by: BOLIVAR BOYD on 10/25/16 1421 Last Action: Reviewed on 01/09/212251 by KATT BLANKENSHIP Scheduled PRN Albuterol Sulfate (Proair Respiclick) 90 Mcg Aer.pow.ba, 1 PUFF IH PRN Q6HRS PRN for SHORTNESS OF BREATH, #1 Prescribed by: Juanita Nguyen APRN on 10/17/162118 Last Action: Reviewed on 01/09/212251 by KATT BLANKENSHIP Benzonatate (Tessalon Perle) 100 Mg Capsule, 1 CAP PO TID PRN for COUGH, #30 Prescribed by: FAN SRIVASTAVA on 12/04/20 165 Guaifenesin/Codeine Phosphate (Codeine-Guaifen 10-100 mg/5 ml) 120 Ml Liquid, 5 ML PO PRN Q6HRS PRN for cough and congestion MDD 20 Milliliter(s) for 6 Days, #120 Ref 0 Prescribed by: JANIE MAURO D.O. on 07/13/19 0130 Tramadol Hcl (Tramadol Hcl) 50 Mg Tablet, 50 MG PO PRN Q6HRS PRN for PAIN for 6 Days, #15 Prescribed by: VI PANIAGUA MD on 01/11/21 1531 Discontinued Medications Insulin Glargine,Hum.rec.anlog (Lantus) 100 Unit/1 Ml Vial, 15 UNIT SQ QHS for diabetes 2 for 30 Days Prescribed by: FAN SRIVASTAVA on 12/04/20 1657 Last Taken: Unknown Dose on 01/08/21 Last Action: Reviewed on 01/09/212251 by KATT BLANKENSHIP Prednisone (Prednisone ) 10 Mg Tablet, 10 MG PO UD for COVID, #24 Ref 0 Take 4 tablets by mouth daily for 3 days, then take 3 tablets by mouth daily for 2 days, then take 2 tablets by mouth daily for 2 days, then take 1 tablets by mouth daily for 2 days, then stop. Prescribed by: FAN SRIVASTAVA on 12/04/20 1311 Justicifation of Admission Dx: Justifications for Admission: Justification of Admission Dx: Yes VI PANIAGUA MD Jan 11, 2021 15:48
--- NOTE | 2021-01-11 16:09 | NUR ---
Pt discharged home with self care. IVs removed. Pt packed belongings herself. Pt assisted to wheelchair and was secured in car with .
== END 2021-01-11 16:12 | disposition home or self-care (01) | DRG 390 ==
LOC: ER 13:24 → 4 NORTH 16:40
PROVIDERS: ADMIT Family Medicine; ATTEND Family Medicine
DX: K56.600 Partial intestinal obstruction, unspecified as to cause (principal); I16.0 Hypertensive urgency
CPT/HCPCS: 36415; 74177; 80053; 81001; 81025; 82553; 82962; 83690; 83735; 84100; 85025; 85651; 86140; 96361; 96374; 96375; 96376; J1170; J1644; J1815; J1885; J2060; J2270; J2405; J3010; J7030; Q9967; 99285-25; G0378

== ENCOUNTER 2021-05-23 14:22 | Emergency (ER) | payer OTHER ==
[~2021-05-23] VITALS: Ht 162.6 cm; Wt 97.7 kg
[~2021-05-23 14:22] MED LIST changes: +DULA0.75 SQ; +TRAM50TA PO
[2021-05-23 15:52] VITALS: BP 175/86
--- NOTE | 2021-05-23 16:56 | PHYS DOC ---
Past Medical History Past Medical History: Diabetes-Type II, Hypertension Additional Past Medical Histor: Covid-19 on 11/29/20 Past Surgical History: Tubal ligation Smoking Status: Never Smoker Alcohol Use: None Drug Use: None General Adult EDM: Chief Complaint: COUGH HPI: HPI: Patient is a 40-year-old female who presents today with multiple complaints. Patient states she has had a cough over the last 7 days and has been feeling fatigued over the last 7 days as well. She also states that today she has felt weak but she would like her blood sugar check she states she checks it every day some days is high some days is low she was unable to give me a number. She also states that she is out of her hypertensive medications and she would like a refill for this. Patient states over the last 7 days she has had a cough and has had nasal congestion and headache, she states that she had COVID in November 2020 but has not had any the vaccines. She also states that she has not had her influenza vaccine as well. Patient also says she is just not been feeling well all day feeling weird and she would like to have her blood sugar checked. Patient appears in no acute distress she was talking on the phone as I entered the room watching a movie with no shortness of air noted. Review of Systems: Review of Systems: Constitutional: Denies fever or chills. [] Eyes: Denies change in visual acuity. [] HENT: Nasal congestion denies sore throat Respiratory: Cough, denies shortness of air Cardiovascular: Denies chest pain or edema. [] GI: Denies abdominal pain, nausea, vomiting, bloody stools or diarrhea. [] : Denies dysuria. [] Musculoskeletal: Denies back pain or joint pain. [] Integument: Denies rash. [] Neurologic: Headache Endocrine: Denies polyuria or polydipsia. [] Lymphatic: Denies swollen glands. [] Psychiatric: Denies depression or anxiety. [] Heart Score: C/O Chest Pain: N/A Risk Factors: Risk Factors: DM, Current or recent (<one month) smoker, HTN, HLP, family history of CAD, obesity. Risk Scores: Score 0 - 3: 2.5% MACE over next 6 weeks - Discharge Home Score 4 - 6: 20.3% MACE over next 6 weeks - Admit for Clinical Observation Score 7 - 10: 72.7% MACE over next 6 weeks - Early Invasive Strategies Allergies: Allergies: Allergies Coded Allergies Type Severity Reaction Last Updated Verified No Known Drug Allergies 01/09/21 No Physical Exam: PE: Constitutional: Well developed, well nourished, no acute distress, non-toxic appearance. [] HENT: Normocephalic, atraumatic, bilateral external ears normal, oropharynx moist, no oral exudates, nose normal. [] Eyes: PERRLA, EOMI, conjunctiva normal, no discharge. [] Neck: Normal range of motion, no tenderness, supple, no stridor. [] Cardiovascular:Heart rate regular rhythm, no murmur [] Lungs & Thorax: Bilateral breath sounds clear to auscultation [] Abdomen: Bowel sounds normal, soft, no tenderness, no masses, no pulsatile masses. [] Skin: Warm, dry, no erythema, no rash. [] Back: No tenderness, no CVA tenderness. [] Extremities: No tenderness, no cyanosis, no clubbing, ROM intact, no edema. [] Neurologic: Alert and oriented X 3, normal motor function, normal sensory function, no focal deficits noted. [] Psychologic: Affect normal, judgement normal, mood normal. [] Current Patient Data: Labs: Laboratory Tests Test 05/23/21 16:21 Influenza Type A Antigen Negative Influenza Type B Antigen Negative SARS-CoV-2 Antigen (Rapid) Positive Vital Signs: Vital Signs Date Time Temp Pulse Resp B/P (MAP) Pulse Ox O2 Delivery O2 Flow Rate FiO2 05/23/21 15:52 98.9 86 19 175/86 (115) 99 Room Air 98.9 Vital Signs Date Time Temp Pulse Resp B/P (MAP) Pulse Ox O2 Delivery O2 Flow Rate FiO2 05/23/21 15:52 98.9 86 19 175/86 (115) 99 Room Air 98.9 EKG: EKG: [] Radiology/Procedures: Radiology/Procedures: REASON: cough PROCEDURE: CHEST AP ONLY EXAM: Chest, single view. HISTORY: Cough. COMPARISON: 12/01/2020 FINDINGS: A frontal view of the chest is obtained. There is no infiltrate, pleural effusion or pneumothorax. The heart is normal in size. IMPRESSION: No acute pulmonary finding. Electronically signed by: Apple Reyes MD (05/23/2021 5:06 PM) [id number][] Course & Med Decision Making: Course & Med Decision Making Pertinent Labs and Imaging studies reviewed. (See chart for details) 1730 spoke to patient about positive COVID status informed her that she will need to quarantine for total of 10 days from the first day of her symptoms starting. Patient will also need to treat her body aches and pains with [id number] Tylenol and ibuprofen. We will also need to make sure that she stays well-hydrated while she is going through this quarantine time. Patient verbalized understanding of this and is agreeable to the plan of care. Dragon Disclaimer: Dragon Disclaimer: This electronic medical record was generated, in whole or in part, using a voice recognition dictation system. Departure Departure Impression: Primary Impression: COVID-19 Disposition: HOME / SELF CARE / HOMELESS Condition: STABLE Referrals: NO PCP (PCP) Additional Instructions: You have been tested for or diagnosed with COVID-19. It is an infection caused by a new type of coronavirus. COVID-19 will cause cold-like or mild flu symptoms in most. It c an cause more severe symptoms like problems breathing in some. There is no treatment for COVID-19. The body will clear the infection over time. Self-care will help to ease discomfort. Steps to Take: Self-Care Rest as needed. Healthy habits may help you feel better. Steps include: Choose healthy foods including fruits and vegetables. Drink water throughout the day. Get plenty of sleep each night. If you smoke, try to quit. It may ease breathing. Avoid alcohol. Keep Others Healthy The virus can spread to others. Droplets are released every time you sneeze or cough. The droplets can get into the mouth, nose, or eyes of people near you and lead to infection. To lower the chances of spreading COVID-19 to others: Stay at home until your doctor has said it is safe to leave. If you tested positive this will mean staying isolated until both of the following are true: At least 10 days have passed since the start of illness. You are free of fever for at least 72 hours without the use of medicine. During this time: - Avoid public areas, events, or transportation. Do not return to work or school until your doctor has said it is safe to do so. - Call ahead if you need to go to a medical center. Let them know you may have COVID-19. It will help them guide you where to go. They may also ask you to wear a facemask when you come to the office. - If you call for emergency medical services, let them know you may have COVID- 19. While at home: - Try to avoid close contact with others. Stay about 6 feet away. - If possible, spend most of your time in a separate room from others. - Use a face mask if you will be in close contact with others such as sharing a room or vehicle. - Have someone wipe down common surfaces in the home. Use household sheet metal technician every day on areas like doorknobs, counters, or sinks. - Cough or sneeze into a tissue. Throw the tissue away right after use. If a tissue is not available, cough or sneeze into your elbow. - Wash your hands often. Wash them after sneezing or coughing. Use soap and water and wash for at least 20 seconds. Alcohol based hand final cleaner can be used if soap and water is not available. - Do not prepare food for others. Avoid sharing personal items like forks, spoons, or toothbrushes. - Avoid close contact with pets while you are sick. There is no evidence of the virus passing to pets. This is a safety step until more is known about this virus. Isolation can be frustrating. Social interaction can help. Keep in touch with friends and family through phone and tech options. You can still interact with others in your home, just keep a safe distance of about 6 feet. Follow-up: Your doctors office will check in with you to see if there are any changes in your health. You may be asked to keep track of symptoms to share with them. They will also let you know when you are clear to be in public again. Problems to Look Out For: Contact your doctor if your recovery is not going as you expect. Get emergency care if you have problems such as: - Trouble breathing - Nonstop chest pain or pressure - Changes in awareness, confusion, or problems waking - Lips or face have bluish color - Worsening of symptoms If you think you have an emergency, call for emergency medical services right away. As taken from [facility] MARITA CARABALLO APRN May 23, 2021 16:56
--- NOTE | 2021-05-23 17:08 | RAD ---
EXAM: Chest, single view. HISTORY: Cough. COMPARISON: 12/01/2020 FINDINGS: A frontal view of the chest is obtained. There is no infiltrate, pleural effusion or pneumo thorax. The heart is normal in size. IMPRESSION: No acute pulmonary finding. Electronically signed by: Apple Reyes MD (05/23/2021 5:06 PM) [id number]
[2021-05-23 17:13] LABS: INFLUENZA A PATIENT NEGATIVE (NEGATIVE); INFLUENZA B PATIENT NEGATIVE (NEGATIVE)
== END 2021-05-23 18:09 | disposition home or self-care (01) ==
LOC: ER 14:22
DX: U07.1 COVID-19 (principal); E11.9 Type 2 diabetes mellitus without complications; I10 Essential (primary) hypertension
CPT/HCPCS: 71045; 87428; 99283

== ENCOUNTER 2021-09-17 18:03 | Emergency (ER) | payer OTHER ==
[~2021-09-17] VITALS: Ht 157.5 cm; Wt 80.0 kg
[2021-09-17] MEDS ORDERED: IV NORMAL SALINE 1000ML BAG 1,000 ML IV ONE (18:30)
[2021-09-17] MEDS ORDERED: fentaNYL PF VIAL 100 MCG/2 ML VIAL IV PRN (18:30)
[2021-09-17 21:38] LABS: BASO # 0.1 x10^3/uL (0.0-0.2); BASO % 1 % (0-3); EOS # 0.1 x10^3/uL (0.0-0.7); EOS % 2 % (0-3); HEMATOCRIT 38.6 % (36.0-47.0); LYMPH # 2.1 x10^3/uL (1.0-4.8); LYMPH % 25 % (24-48); MEAN CORPUSCULAR HEMOGLOBIN 28 pg (25-35); MEAN CORPUSCULAR HGB CONC 34 g/dL (31-37); MEAN CORPUSCULAR VOLUME 83 fL (79-100); MONO # 0.7 x10^3/uL (0.0-1.1); MONO % 8 % (0-9); NEUT # 5.4 x10^3/uL (1.8-7.7); NEUT % 65 % (31-73); PLATELET COUNT 291 x10^3/uL (140-400); RED BLOOD COUNT 4.64 x10^6/uL (3.50-5.40); RED CELL DISTRIBUTION WIDTH 13.7 % (11.5-14.5); WHITE BLOOD COUNT 8.3 x10^3/uL (4.0-11.0)
[2021-09-17 21:46] LABS: CALCIUM 8.8 mg/dL (8.5-10.1); CREATININE 0.9 mg/dL (0.6-1.0); GFR 68.7; POTASSIUM 3.5 mmol/L (3.5-5.1)
[2021-09-17 21:52] LABS: ALBUMIN 3.6 g/dL (3.4-5.0); ALBUMIN/GLOBULIN RATIO 0.9 (1.0-1.7); MAGNESIUM 1.6 mg/dL (1.8-2.4); TOTAL BILIRUBIN 0.6 mg/dL (0.2-1.0); TOTAL PROTEIN 7.7 g/dL (6.4-8.2)
[2021-09-17] MEDS ORDERED: INSULIN REGULAR 100 UNIT/ML 3ML VIAL. SQ ONE (23:30)
[2021-09-17] MEDS ORDERED: ACETAMINOPHEN 500 MG TABLET PO ONE (23:30)
[2021-09-17] MEDS ORDERED: cloNIDine HCL 0.1 MG TABLET PO ONE (23:30)
[2021-09-17] MEDS ORDERED: LIDOCAINE 2% VISCOUS 15 ML SOLUTION. SWSW ONE (23:30)
--- NOTE | 2021-09-17 23:53 | PHYS DOC ---
Past Medical History Past Medical History: Diabetes-Type II, Hypertension Additional Past Medical Histor: Covid-19 on 11/29/20 Past Surgical History: Tubal ligation Smoking Status: Never Smoker Alcohol Use: None Drug Use: None General Adult EDM: Chief Complaint: MULTIPLE COMPLAINTS HPI: HPI: Patient is a 40 year old female with history of diabetes type 2, hypertension, who presents to the ED today to be evaluated for high blood pressure and hyperglycemia. Patient states she went to the doctor's office today for routine evaluation, refill on her blood pressure medicine as well as diabetes medicine. She states her blood pressure was in the 170s over low 100s, she states she complained of neck pain which has been going on for 3 weeks with no injury and tingling in her face and she was sent to the ED. Patient denies any headache, nausea, vomiting, chest pain or shortness of breath. Review of Systems: Review of Systems: Constitutional: Denies fever or chills. [] Eyes: Denies change in visual acuity. [] HENT: Denies nasal congestion or sore throat. [] Respiratory: Denies cough or shortness of breath. [] Cardiovascular: Reports high blood pressure, Denies chest pain or edema. [] GI: Denies abdominal pain, nausea, vomiting, bloody stools or diarrhea. [] Endocrinology-reports high glucose : Denies dysuria. [] Musculoskeletal: Denies back pain or joint pain. [] Integument: Denies rash. [] Neurologic: Reports tingling in her face, denies headache, focal weakness or sensory changes. [] Psychiatric: Denies depression or anxiety. [] Heart Score: C/O Chest Pain: N/A Risk Factors: Risk Factors: DM, Current or recent (<one month) smoker, HTN, HLP, family history of CAD, obesity. Risk Scores: Score 0 - 3: 2.5% MACE over next 6 weeks - Discharge Home Score 4 - 6: 20.3% MACE over next 6 weeks - Admit for Clinical Observation Score 7 - 10: 72.7% MACE over next 6 weeks - Early Invasive Strategies Current Medications: Current Medications Medications (Trade) Dose Ordered Sig/Silke Start Time Stop Time Status Last Admin Dose Admin Acetaminophen (Tylenol) 1,000 mg 1X ONCE 09/17/21 23:30 09/17/21 23:31 DC 09/17/21 23:36 1,000 MG Clonidine HCl (Catapres) 0.1 mg 1X ONCE 09/17/21 23:30 09/17/21 23:31 DC Fentanyl Citrate (Fentanyl 2ml Vial) 25 mcg PRN Q15MIN PRN 09/17/21 18:30 09/18/21 18:29 09/17/21 22:05 25 MCG Insulin Human Regular (HumuLIN R VIAL) 5 unit 1X ONCE 09/17/21 23:30 09/17/21 23:31 DC Lidocaine HCl (Viscous Lidocaine) 15 ml 1X ONCE 09/17/21 23:30 09/17/21 23:31 DC 09/17/21 23:35 15 ML Sodium Chloride 1,000 ml @ 1,000 mls/hr 1X ONCE 09/17/21 18:30 09/17/21 19:29 DC 09/17/21 18:30 1,000 MLS/HR Allergies: Allergies: Allergies Coded Allergies Type Severity Reaction Last Updated Verified No Known Drug Allergies 01/09/21 No Physical Exam: PE: Constitutional: Well developed, well nourished, no acute distress, non-toxic appearance. [] HENT: Normocephalic, atraumatic, bilateral external ears normal, oropharynx moist, no oral exudates, nose normal. [] Eyes: PERRLA, EOMI, conjunctiva normal, no discharge. [] Neck: Normal range of motion, no tenderness, supple, no stridor. [] Cardiovascular:Heart rate regular rhythm, no murmur [] Lungs & Thorax: Bilateral breath sounds clear to auscultation [] Abdomen: Bowel sounds normal, soft, no tenderness, no masses, no pulsatile masses. [] Skin: Warm, dry, no erythema, no rash. [] Back: No tenderness, no CVA tenderness. [] Extremities: No tenderness, no cyanosis, no clubbing, ROM intact, no edema. [] Neurologic: Alert and oriented X 3, normal motor function, normal sensory function, no focal deficits noted. Cranial nerves II through XII intact. Psychologic: Affect normal, judgement normal, mood normal. [] Current Patient Data: Labs: Laboratory Tests Test 09/17/21 18:20 09/17/21 21:26 09/17/21 23:37 Glucose (Fingerstick) 271 mg/dL (70-99) H 304 mg/dL (70-99) H White Blood Count 8.3 x10^3/uL (4.0-11.0) Red Blood Count 4.64 x10^6/uL (3.50-5.40) Hemoglobin 13.0 g/dL (12.0-15.5) Hematocrit 38.6 % (36.0-47.0) Mean Corpuscular Volume 83 fL (79-100) Mean Corpuscular Hemoglobin 28 pg (25-35) Mean Corpuscular Hemoglobin Concent 34 g/dL (31-37) Red Cell Distribution Width 13.7 % (11.5-14.5) Platelet Count 291 x10^3/uL (140-400) Neutrophils (%) (Auto) 65 % (31-73) Lymphocytes (%) (Auto) 25 % (24-48) Monocytes (%) (Auto) 8 % (0-9) Eosinophils (%) (Auto) 2 % (0-3) Basophils (%) (Auto) 1 % (0-3) Neutrophils # (Auto) 5.4 x10^3/uL (1.8-7.7) Lymphocytes # (Auto) 2.1 x10^3/uL (1.0-4.8) Monocytes # (Auto) 0.7 x10^3/uL (0.0-1.1) Eosinophils # (Auto) 0.1 x10^3/uL (0.0-0.7) Basophils # (Auto) 0.1 x10^3/uL (0.0-0.2) Sodium Level 135 mmol/L (136-145) L Potassium Level 3.5 mmol/L (3.5-5.1) Chloride Level 99 mmol/L (98-107) Carbon Dioxide Level 26 mmol/L (21-32) Anion Gap 10 (6-14) Blood Urea Nitrogen 10 mg/dL (7-20) Creatinine 0.9 mg/dL (0.6-1.0) Estimated GFR (Cockcroft-Gault) 68.7 BUN/Creatinine Ratio 11 (6-20) Glucose Level 389 mg/dL (70-99) H Calcium Level 8.8 mg/dL (8.5-10.1) Magnesium Level 1.6 mg/dL (1.8-2.4) L Total Bilirubin 0.6 mg/dL (0.2-1.0) Aspartate Amino Transferase (AST) 39 U/L (15-37) H Alanine Aminotransferase (ALT) 58 U/L (14-59) Alkaline Phosphatase 102 U/L (46-116) Troponin I High Sensitivity 11 ng/L (4-50) CF-Uko-A-Type Natriuretic Peptide 25 pg/mL (0-124) Total Protein 7.7 g/dL (6.4-8.2) Albumin 3.6 g/dL (3.4-5.0) Albumin/Globulin Ratio 0.9 (1.0-1.7) L Laboratory Tests 09/17/21 21:26 Laboratory Tests 09/17/21 21:26 Vital Signs: Vital Signs Date Time Temp Pulse Resp B/P (MAP) Pulse Ox O2 Delivery O2 Flow Rate FiO2 09/17/21 22:05 35 97 Room Air 09/17/21 21:34 98.2 100 178/86 (116) 98.2 EKG: EK interpreted by Dr. Arevalo sinus rhythm heart rate 90 inverted T waves noted on V4, V5, V6, no comparison EKG available, no STEMI. [] Radiology/Procedures: Radiology/Procedures: [] Course & Med Decision Making: Course & Med Decision Making Pertinent Labs and Imaging studies reviewed. (See chart for details) This a 40-year-old female patient presenting to the ED today from the doctor's office to be evaluated for hyperglycemia and hypertension as well as tingling in her face and neck pain for [address] of the head, cervical spine and chest x-ray are negative for any acute findings. EKG noted for inverted T waves, patient has no chest pain or cardiac history. We will follow-up with java lead engineer for this. CBC with no acute findings, high-sensitivity troponin is negative, CMP with glucose of 389, anion gap is normal, CO2 is normal. Patient has been given IV fluids, 5 units of subQ insulin. UA is missing. Patient states she provided urine and left it fast-track area. No urine was found. Patient was discharged home. Instructed follow-up with PCP and provided java lead engineer. She had no blood pressure medicines for home use. Prescription given for few days, she states she is on a water pill and metoprolol. Dragon Disclaimer: Sánchez Disclaimer: This electronic medical record was generated, in whole or in part, using a voice recognition dictation system. Departure Departure Impression: Primary Impression: Hyperglycemia Additional Impressions: Accelerated hypertension Neck pain Disposition: HOME / SELF CARE / HOMELESS Condition: STABLE Referrals: NON,STAFF (PCP) follow up with your doctor STEPHEN RAO MD follow up in one week Patient Instructions: Hyperglycemia, Hypertension, Torticollis, Acute Additional Instructions: You were evaluated in the emergency room, your CT of the head, neck are negative for any acute findings. You were noted to have hyperglycemia and high blood pressure. Ensure you are taking your medicines. Please follow the Dash diet and try to exercise. Take the prescribed medications as ordered for your high blood pressure. Ensure you are taking your diabetes medicine. Please follow-up with your doctor as soon as you can Scripts Tramadol Hcl (TRAMADOL HCL) 50 Mg Tablet 50 MG PO Q6HRS PRN for PAIN, #30 TAB Prov: HERO SRIVASTAVA APRN 09/17/21 Hydrochlorothiazide (HYDROCHLOROTHIAZIDE TABLET ) 25 Mg Tablet 25 MG PO DAILY for DIURETIC, #30 TAB 0 Refills Prov: HERO SRIVASTAVA APRN 09/17/21 Metoprolol Succinate (METOPROLOL SUCCINATE ( XL )) 25 Mg Tab.er.24h 1 TAB PO DAILY, #30 TAB Prov: HERO SRIVASTAVA APRN 09/17/21 HERO SRIVASTAVA APRN September 17, 2021 23:53
[2021-09-17] MEDS ORDERED: METO-239 PO (23:56)
[2021-09-17] MEDS ORDERED: HYDR-2145 PO (23:56)
[2021-09-17] MEDS ORDERED: TRAM50TA PO (23:56)
[2021-09-18 03:27] VITALS: BP 169/72
--- NOTE | 2021-09-18 12:22 | RAD ---
EXAMINATION: XR CHEST 1V CLINICAL HISTORY: Hypertension. EXAM DATE/TIME: 09/17/2021 7:07 PM COMPARISON: 05/23/2021 FINDINGS: Lines, Tubes, and Devices: None. Cardiomediastinal Silhouette: Within normal limits. Lungs and Pleura: No evidence of focal airspace consolidation or pleural effusion. Pulmonary vasculat ure unremarkable. Stable appearance of the right lower lung zone. Bones and Soft Tissues: Degenerative changes in the thoracic spine. IMPRESSION: No evidence of acute cardiopulmonary abnormality or significant interval change. Electronically signed by: Nam Lr DO (09/17/2021 8:41 PM) [facility]
--- NOTE | 2021-09-18 12:22 | EKG ---
[facility] [address] [place] [id number] Test Date: 2021-09-17 Test Time: 21:21:11 Pat Name: CORNELIA SILVESTRE Department: Room: Gender: F 3Rd Mate: : 1980 Requested By: HERO SRIVASTAVA Order Number: [id number] Reading MD: Manny Miranda Measurements Intervals [place] Rate: 90 P: 42 MO: 156 QRS: 38 QRSD: 82 T: 9 QT: 326 QTc: 402 Interpretive Statements SINUS RHYTHM T ABNORMALITY IN ANTEROLATERAL LEADS Electronically Signed On 09-19-2021 17:14:05 CDT by Manny Miranda
--- NOTE | 2021-09-18 12:22 | RAD ---
EXAM: CT head and cervical spine without contrast INDICATION: Hypertension, dizziness COMPARISON: None available TECHNIQUE: Axial CT imaging through the head and cervical spine without intravenous contrast. Sagitta l and coronal reformats were obtained. One or more of the following individualized dose reduction techniques were utilized for this examinat ion: 1. Automated exposure control 2. Adjustment of the mA and/or kV according to patient size 3. Use of iterative reconstruction technique. FINDINGS: CT head: The ventricles and sulci are normal. Mike-white matter differentiation is maintained. There is no in tracranial hemorrhage, acute infarct, or mass lesion. Basal cisterns are clear. The skull and scalp are intact. Paranasal sinuses and mastoid air cells are clear. Globes and orbits are intact. CT cervical spine: No acute fracture. Alignment is normal. There is mild disc space narrowing at C5-C6 with anterior ost eophytes. There is severe right foraminal narrowing at C4-C5 due to uncovertebral joint proliferation . No definite canal narrowing. Prevertebral soft tissues normal. Mild emphysema in the lung apices. IMPRESSION: 1. No acute intracranial abnormality. 2. No acute osseous abnormality of the cervical spine. Electronically signed by: Agueda Gary MD (09/17/2021 7:56 PM) [facility]
== END 2021-09-18 03:32 | disposition home or self-care (01) ==
LOC: ER 18:03
DX: I10 Essential (primary) hypertension (principal); E11.65 Type 2 diabetes mellitus with hyperglycemia; M54.2 Cervicalgia
CPT/HCPCS: 36415; 70450; 71045; 72125; 80053; 82962; 83735; 83880; 84484; 85025; 93005; 96361; 96372; 96374; 99284; J1815; J3010; J7030